=== PATIENT | female | born 1945 | race Caucasian/White ===

== ENCOUNTER 2018-12-24 11:04 | Inpatient (IN) ==
[2018-12-24] MEDS ORDERED: ALBUTEROL/IPRATROPIUM 3 ML NEB RESP TX STA (11:30)
[2018-12-24] MEDS ORDERED: ACETAMINOPHEN 325 MG TABLET PO ONE (11:30)
[2018-12-24] MEDS ORDERED: SODIUM CHLORIDE 0.9% 1,000 ML IV STA (11:30)
[2018-12-24] MEDS ORDERED: methylPREDNISolone SOD SUC 125 MG/2 ML VIAL IV STA (11:30)
[2018-12-24] MEDS ORDERED: SODIUM CHLORIDE 0.9% 500 ML IV STA (11:51)
[2018-12-24 11:56] LABS: Eosinophils % 0.4 % (0.00-10.9); Hematocrit 25.5 VOL% (35.7-47.0); Hemoglobin 8.3 GM/DL (12.0-16.0); Immature Granulocytes % 0.9 %; Immature Granulocytes Absolute 0.05 #; Lymphocytes # 0.3 10*3/uL (1.4-4.0); Lymphocytes % 5.7 % (21.3-54.2); Mean Corpuscular HGB Conc 32.5 GM/DL (32-36); Mean Corpuscular Volume 104.5 FL (87-102); Mean Platelet Volume 8.7 FL (9.6-12.0); Platelet Count 294 T/CUMM (130-400); Red Blood Count 2.44 MC/CUMM (3.8-5.5); Red Cell Distribution Width 14.8 % (9.3-17.3); White Blood Count 5.4 T/CUMM (4-12)
[2018-12-24] MEDS ORDERED: LEVOFLOXACIN INJ 750 MG in PREMIX 1 EACH IV STA (12:05)
[2018-12-24] MEDS ORDERED: VANCOMYCIN INJ 1,000 MG in SODIUM CHLORIDE 0.9% 250 ML IV STA (12:05)
[2018-12-24 12:13] LABS: INR 1.1; PT Patient Result 11.4 SECS
[2018-12-24 12:16] LABS: Alanine Aminotransferase 50 U/L (13-56); Albumin 2.1 G/DL (3.4-5.0); Alkaline Phosphatase 265 U/L (45-117); Aspartate Amino Transferase 65 U/L (0-37); Blood Urea Nitrogen 16 MG/DL (7-18); Calcium 9.1 MG/DL (8.5-10.1); Glucose 90 MG/DL (74-106); Osmolality,Calculated 277.5 MOS/KG (273-304); Total Protein 6.9 G/DL (6.4-8.3); Troponin I < 0.015 NG/ML (0.00-0.045)
[2018-12-24 12:38] LABS: Anisocytosis 1+; Platelet Estimate Normal; Poikilocytosis 1+
[2018-12-24 12:39] LABS: Ovalocytes Few
[2018-12-24] MEDS ORDERED: guaiFENesin 200 MG/10 ML UDCUP PO STA (13:47)
[2018-12-24] MEDS ORDERED: LACTULOSE 20 GM/30 ML UDCUP PO PRN (14:22)
[2018-12-24] MEDS ORDERED: SODIUM CHLORIDE 0.9% 1,000 ML IV SCH (14:30)
[2018-12-24] MEDS ORDERED: BENZONATATE 100 MG CAPSULE PO PRN (14:35)
[2018-12-24] MEDS: ACETYLCYSTEINE 20% 800 MG/4 ML VIAL RESP TX SCH (15:00)
[2018-12-24 15:12] LABS: Risk Ratio 1.93; Thyroid Stimulating Hormone 0.724 uIU/ml (0.358-3.74); VLDL CHOLESTEROL 24.8 MG/DL
[2018-12-24] MEDS: ENOXAPARIN 40 MG/0.4 ML SYRINGE SUBCUT SCH (15:50)
[2018-12-24] MEDS: PIPERACILLIN/TAZOBACTAM 3,375 MG in SODIUM CHLORIDE 0.9% 100 ML IV SCH ×2 (15:56→23:00)
[2018-12-24 16:25] LABS: Apearance,Urine CLEAR (Clear); Bilirubin,Urine Negative (Negative); Blood, Urine Small mg/dL (Negative); Glucose,Urine (UA) Negative (Negative); Ketones,Urine Negative (Negative); Mucus,Urine Occasional /LPF (Occasional); Nitrite,Urine Negative (Negative); Protein,Urine Negative; RBC,Urine <1 /HPF (0-4); Squamous Epithelial Cell,Urine Occasional /HPF (0-10); Urine Color Straw (Yellow); Urine Specific Gravity 1.008 (1.001-1.035); Urine Urobilinogen < 2.0 EU/DL (0.2-1.0); WBC,Urine 1 /HPF (0-6)
[2018-12-24] MEDS: ACETAMINOPHEN 325 MG TABLET PO PRN ×2 (18:05→22:58)
[2018-12-24] MEDS: METOCLOPRAMIDE 10 MG TABLET PO SCH (18:05)
[2018-12-24] MEDS: ALBUTEROL/IPRATROPIUM 3 ML NEB RESP TX SCH (20:00)
[2018-12-24] MEDS: FOLIC ACID 1 MG TABLET PO SCH (21:40)
[2018-12-24] MEDS: MULTIVITAMIN (CENTRUM) TABLET PO SCH (21:40)
[2018-12-24] MEDS: ALPRAZolam 0.5 MG TABLET PO SCH (21:40)
[2018-12-24] MEDS: SERTRALINE 25 MG TABLET PO SCH (21:41)
[2018-12-24] MEDS: rOPINIRole 1 MG TABLET PO SCH (21:41)
[2018-12-25] MEDS: ACETYLCYSTEINE 20% 800 MG/4 ML VIAL RESP TX SCH ×3 (00:10→15:44)
[2018-12-25] MEDS: ALBUTEROL/IPRATROPIUM 3 ML NEB RESP TX SCH ×3 (00:10→14:07)
[2018-12-25 06:01] LABS: Basophils % 0.2 % (0.0-0.8); Immature Granulocytes % 0.9 %; Immature Granulocytes Absolute 0.05 #; Lymphocytes # 0.3 10*3/uL (1.4-4.0); Lymphocytes % 5.1 % (21.3-54.2); Mean Corpuscular HGB Conc 33.3 GM/DL (32-36); Mean Platelet Volume 8.8 FL (9.6-12.0); Monocytes % 3.8 % (1.7-12.7); Platelet Count 250 T/CUMM (130-400); Red Blood Count 2.33 MC/CUMM (3.8-5.5); Red Cell Distribution Width 14.7 % (9.3-17.3); White Blood Count 5.7 T/CUMM (4-12)
[2018-12-25 06:15] LABS: Calcium 9.1 MG/DL (8.5-10.1); Osmolality,Calculated 281.3 MOS/KG (273-304)
[2018-12-25] MEDS: METOCLOPRAMIDE 10 MG TABLET PO SCH ×3 (08:49→16:35)
[2018-12-25] MEDS: MAGNESIUM OXIDE 400 MG TABLET PO SCH (08:49)
[2018-12-25] MEDS: MULTIVITAMIN (CENTRUM) TABLET PO SCH ×2 (08:49→22:45)
[2018-12-25] MEDS: PANTOPRAZOLE 40 MG TABLET PO SCH (08:49)
[2018-12-25] MEDS: ACEBUTOLOL 200 MG CAPSULE PO SCH (08:50)
[2018-12-25] MEDS: PIPERACILLIN/TAZOBACTAM 3,375 MG in SODIUM CHLORIDE 0.9% 100 ML IV SCH ×2 (08:51→19:20)
[2018-12-25] MEDS: ACETAMINOPHEN 325 MG TABLET PO PRN ×2 (08:56→13:36)
[2018-12-25] MEDS: FOLIC ACID 1 MG TABLET PO SCH ×2 (11:54→22:45)
[2018-12-25] MEDS: VANCOMYCIN INJ 750 MG in SODIUM CHLORIDE 0.9% 250 ML IV SCH (13:33)
[2018-12-25] MEDS: LEVOFLOXACIN INJ 750 MG in PREMIX 1 EACH IV SCH (16:35)
[2018-12-25] MEDS: ENOXAPARIN 40 MG/0.4 ML SYRINGE SUBCUT SCH (16:35)
[2018-12-25] MEDS ORDERED: PROPOFOL 1,000 MG/100 ML BOTTLE IV ONE (17:34)
[2018-12-25] MEDS ORDERED: VECURONIUM 10 MG VIAL IV ONE ×2 (17:34→17:47)
[2018-12-25] MEDS ORDERED: PROPOFOL 200 MG/20 ML VIAL IV ONE (17:48)
[2018-12-25] MEDS: SODIUM CHLORIDE 0.9% 1,000 ML IV SCH (18:00)
[2018-12-25] MEDS: PROPOFOL 1,000 MG/100 ML BOTTLE IV SCH ×2 (18:00→22:50)
[2018-12-25 18:18] LABS: Apearance,Urine CLEAR (Clear); Bacteria,Urine Occasional /HPF (Few); Bilirubin,Urine Negative (Negative); Blood, Urine Small mg/dL (Negative); Glucose,Urine (UA) Negative (Negative); Hyaline Casts,Urine 1 /LPF (0-3); Ketones,Urine Negative (Negative); Mucus,Urine Occasional /LPF (Occasional); Nitrite,Urine Negative (Negative); Protein,Urine 30 MG/DL; RBC,Urine <1 /HPF (0-4); Urine Color Yellow (Yellow); Urine Specific Gravity 1.017 (1.001-1.035); Urine Urobilinogen < 2.0 EU/DL (0.2-1.0); WBC,Urine 1 /HPF (0-6)
[2018-12-25 18:33] LABS: ABG Base Excess -3.1 MMOL/L (-2.5-2.5); ABG HCO3 21.7 MMOL/L (20-26); ABG Oxygen Saturation 93.5 % (95-100); ABG PCO2 65.2 MM HG (35-48); ABG PO2 95.7 MM HG (80-95); ABG TCO2 24.3 MMOL/L (23-27); Allen Test Positive; Pt O2 Delivery Device Ventilator
[2018-12-25 18:35] LABS: ABG PH 7.206 (7.35-7.45)
[2018-12-25 19:53] LABS: ABG Base Excess -1.6 MMOL/L (-2.5-2.5); ABG HCO3 22.9 MMOL/L (20-26); ABG Oxygen Saturation 88.1 % (95-100); ABG PCO2 49.6 MM HG (35-48); ABG PH 7.309 (7.35-7.45); ABG TCO2 23.2 MMOL/L (23-27); Allen Test Positive; Pt O2 Delivery Device Ventilator
[2018-12-25] MEDS: IPRATROPIUM 500 MCG/2.5 ML NEB RESP TX SCH (20:02)
[2018-12-25] MEDS: LEVALBUTEROL 0.31 MG/3 ML NEB RESP TX SCH (20:02)
[2018-12-25] MEDS: SERTRALINE 25 MG TABLET PO SCH (22:45)
[2018-12-25] MEDS: ALPRAZolam 0.5 MG TABLET PO SCH (22:45)
[2018-12-25] MEDS: rOPINIRole 1 MG TABLET PO SCH (22:45)
[2018-12-26] MEDS: IPRATROPIUM 500 MCG/2.5 ML NEB RESP TX SCH ×4 (00:42→19:03)
[2018-12-26] MEDS: LEVALBUTEROL 0.31 MG/3 ML NEB RESP TX SCH ×4 (00:42→19:03)
[2018-12-26] MEDS: ACETYLCYSTEINE 20% 800 MG/4 ML VIAL RESP TX SCH ×2 (00:42→07:22)
[2018-12-26] MEDS: PIPERACILLIN/TAZOBACTAM 3,375 MG in SODIUM CHLORIDE 0.9% 100 ML IV SCH ×3 (00:45→17:58)
[2018-12-26 04:33] LABS: ABG Base Excess 1.5 MMOL/L (-2.5-2.5); ABG HCO3 25.7 MMOL/L (20-26); ABG Oxygen Saturation 92.9 % (95-100); ABG PCO2 35.9 MM HG (35-48); ABG PH 7.456 (7.35-7.45); ABG PO2 68.9 MM HG (80-95); ABG TCO2 23.5 MMOL/L (23-27); Allen Test Positive; Pt O2 Delivery Device Ventilator
[2018-12-26] MEDS: PROPOFOL 1,000 MG/100 ML BOTTLE IV SCH ×4 (04:40→18:59)
[2018-12-26 05:01] LABS: Basophils % 0.2 % (0.0-0.8); Eosinophils % 0.2 % (0.00-10.9); Hematocrit 23.4 VOL% (35.7-47.0); Hemoglobin 7.5 GM/DL (12.0-16.0); Immature Granulocytes % 1.1 %; Immature Granulocytes Absolute 0.06 #; Lymphocytes # 0.4 10*3/uL (1.4-4.0); Lymphocytes % 8.1 % (21.3-54.2); Mean Corpuscular HGB Conc 32.1 GM/DL (32-36); Mean Corpuscular Volume 104.5 FL (87-102); Mean Platelet Volume 8.5 FL (9.6-12.0); Monocytes % 6.9 % (1.7-12.7); Neutrophils % 83.5 % (38.7-73.9); Platelet Count 249 T/CUMM (130-400); Red Blood Count 2.24 MC/CUMM (3.8-5.5); Red Cell Distribution Width 14.9 % (9.3-17.3); White Blood Count 5.4 T/CUMM (4-12)
[2018-12-26 06:37] LABS: Calcium 8.6 MG/DL (8.5-10.1); Osmolality,Calculated 280.3 MOS/KG (273-304)
[2018-12-26] MEDS ORDERED: DEXTROSE 50% 25 GM/50 ML VIAL IV PRN (09:13)
[2018-12-26] MEDS ORDERED: GLUCAGON 1 MG VIAL IM PRN (09:13)
[2018-12-26] MEDS: FOLIC ACID 1 MG TABLET PO SCH ×2 (09:33→21:45)
[2018-12-26] MEDS: ASPIRIN CHEW 81 MG TABLET PO SCH (09:33)
[2018-12-26] MEDS: METOCLOPRAMIDE 10 MG TABLET PO SCH ×3 (09:33→17:00)
[2018-12-26] MEDS: PANTOPRAZOLE 40 MG TABLET PO SCH (09:33)
[2018-12-26] MEDS: MAGNESIUM OXIDE 400 MG TABLET PO SCH (09:33)
[2018-12-26] MEDS: MULTIVITAMIN (CENTRUM) TABLET PO SCH ×2 (09:33→21:45)
[2018-12-26] MEDS: ACEBUTOLOL 200 MG CAPSULE PO SCH (10:00)
[2018-12-26] MEDS ORDERED: SODIUM CHLORIDE 0.9% 1,000 ML IV PRN (10:26)
[2018-12-26] MEDS ORDERED: MAGNESIUM SULF RIDER 4 GM in PREMIX 1 EACH IV PRN (10:45)
[2018-12-26] MEDS: FLUCONAZOLE INJ 100 MG in IV BAG 1 EACH IV SCH (11:30)
[2018-12-26] MEDS: VANCOMYCIN INJ 750 MG in SODIUM CHLORIDE 0.9% 250 ML IV SCH (12:25)
[2018-12-26] MEDS: methylPREDNISolone SOD SUC 40 MG/1 ML VIAL IV SCH (12:25)
[2018-12-26] MEDS: INSULIN REGULAR 100 UNIT/ML SUBCUT SCH ×2 (14:40→19:43)
[2018-12-26] MEDS: LEVOFLOXACIN INJ 750 MG in PREMIX 1 EACH IV SCH (16:20)
[2018-12-26 18:56] LABS: Folate > 24.0 NG/ML (5.4-24.0); Vitamin B12 701 PG/ML (211-911)
[2018-12-26] MEDS: SODIUM CHLORIDE 0.9% 1,000 ML IV SCH (20:53)
[2018-12-26] MEDS ORDERED: PANTOPRAZOLE 40 MG TABLET PO SCH (21:00)
[2018-12-26] MEDS: rOPINIRole 1 MG TABLET PO SCH (21:45)
[2018-12-26] MEDS: ALPRAZolam 0.5 MG TABLET PO SCH (21:46)
[2018-12-26] MEDS: SERTRALINE 25 MG TABLET PO SCH (21:46)
[2018-12-27] MEDS: PIPERACILLIN/TAZOBACTAM 3,375 MG in SODIUM CHLORIDE 0.9% 100 ML IV SCH ×3 (00:45→16:34)
[2018-12-27] MEDS: PROPOFOL 1,000 MG/100 ML BOTTLE IV SCH ×3 (00:45→19:20)
[2018-12-27] MEDS: INSULIN REGULAR 100 UNIT/ML SUBCUT SCH ×4 (00:50→18:57)
[2018-12-27] MEDS: LEVALBUTEROL 0.31 MG/3 ML NEB RESP TX SCH ×4 (01:15→19:45)
[2018-12-27] MEDS: IPRATROPIUM 500 MCG/2.5 ML NEB RESP TX SCH ×4 (01:15→19:45)
[2018-12-27 03:40] LABS: ABG HCO3 27.1 MMOL/L (20-26); ABG Oxygen Saturation 98.9 % (95-100); ABG PCO2 49.7 MM HG (35-48); ABG PH 7.373 (7.35-7.45); ABG TCO2 26.2 MMOL/L (23-27); Allen Test Positive; Pt O2 Delivery Device Ventilator
[2018-12-27 04:51] LABS: Basophils % 0.2 % (0.0-0.8); Hematocrit 30.9 VOL% (35.7-47.0); Hemoglobin 10.4 GM/DL (12.0-16.0); Immature Granulocytes % 1.6 %; Immature Granulocytes Absolute 0.07 #; Lymphocytes # 0.2 10*3/uL (1.4-4.0); Lymphocytes % 5.2 % (21.3-54.2); Mean Corpuscular HGB Conc 33.7 GM/DL (32-36); Mean Platelet Volume 8.9 FL (9.6-12.0); Monocytes % 3.2 % (1.7-12.7); Neutrophils % 89.8 % (38.7-73.9); Platelet Count 213 T/CUMM (130-400); Red Blood Count 3.12 MC/CUMM (3.8-5.5); Red Cell Distribution Width 16.4 % (9.3-17.3); White Blood Count 4.4 T/CUMM (4-12)
[2018-12-27 05:15] LABS: Osmolality,Calculated 284.3 MOS/KG (273-304)
[2018-12-27 05:22] LABS: Prealbumin 13.8 MG/DL (20-40)
[2018-12-27] MEDS: MULTIVITAMIN (CENTRUM) TABLET PO SCH ×2 (11:07→21:55)
[2018-12-27] MEDS: FOLIC ACID 1 MG TABLET PO SCH ×2 (11:07→21:55)
[2018-12-27] MEDS: METOCLOPRAMIDE 10 MG TABLET PO SCH ×3 (11:07→16:35)
[2018-12-27] MEDS: methylPREDNISolone SOD SUC 40 MG/1 ML VIAL IV SCH ×3 (11:08→23:25)
[2018-12-27] MEDS: ACEBUTOLOL 200 MG CAPSULE PO SCH (11:08)
[2018-12-27] MEDS: FLUCONAZOLE INJ 100 MG in IV BAG 1 EACH IV SCH (11:08)
[2018-12-27] MEDS: MAGNESIUM OXIDE 400 MG TABLET PO SCH (11:08)
[2018-12-27] MEDS: VANCOMYCIN INJ 750 MG in SODIUM CHLORIDE 0.9% 250 ML IV SCH (12:50)
[2018-12-27] MEDS: LEVOFLOXACIN INJ 750 MG in PREMIX 1 EACH IV SCH (15:00)
[2018-12-27] MEDS ORDERED: METOPROLOL TARTRATE 50 MG TABLET PO PRN (15:07)
[2018-12-27] MEDS: ENALAPRIL 2.5 MG/2 ML VIAL IV PRN (18:52)
[2018-12-27] MEDS: SERTRALINE 25 MG TABLET PO SCH (21:55)
[2018-12-27] MEDS: rOPINIRole 1 MG TABLET PO SCH (21:55)
[2018-12-27] MEDS: ALPRAZolam 0.5 MG TABLET PO SCH (21:55)
[2018-12-27] MEDS: LANSOPRAZOLE ODT 30 MG TABLET PER TUBE SCH (21:55)
[2018-12-28] MEDS: INSULIN REGULAR 100 UNIT/ML SUBCUT SCH ×4 (00:36→18:01)
[2018-12-28] MEDS: PIPERACILLIN/TAZOBACTAM 3,375 MG in SODIUM CHLORIDE 0.9% 100 ML IV SCH ×3 (00:55→16:41)
[2018-12-28] MEDS: ENALAPRIL 2.5 MG/2 ML VIAL IV PRN (01:05)
[2018-12-28] MEDS: IPRATROPIUM 500 MCG/2.5 ML NEB RESP TX SCH ×4 (01:06→19:20)
[2018-12-28] MEDS: LEVALBUTEROL 0.31 MG/3 ML NEB RESP TX SCH ×4 (01:06→19:20)
[2018-12-28 04:04] LABS: ABG Base Excess 8.7 MMOL/L (-2.5-2.5); ABG HCO3 33.7 MMOL/L (20-26); ABG Oxygen Saturation 98.7 % (95-100); ABG PCO2 48.1 MM HG (35-48); ABG PH 7.463 (7.35-7.45); ABG PO2 113.9 MM HG (80-95); ABG TCO2 35.1 MMOL/L (23-27); Allen Test Positive; Pt O2 Delivery Device Ventilator
[2018-12-28] MEDS: PROPOFOL 1,000 MG/100 ML BOTTLE IV SCH ×3 (04:40→20:46)
[2018-12-28 04:58] LABS: Basophils % 0.3 % (0.0-0.8); Hematocrit 33.4 VOL% (35.7-47.0); Hemoglobin 11.2 GM/DL (12.0-16.0); Immature Granulocytes % 1.3 %; Immature Granulocytes Absolute 0.09 #; Lymphocytes # 0.2 10*3/uL (1.4-4.0); Lymphocytes % 3.4 % (21.3-54.2); Mean Corpuscular HGB Conc 33.5 GM/DL (32-36); Mean Corpuscular Volume 99.4 FL (87-102); Mean Platelet Volume 9.2 FL (9.6-12.0); Platelet Count 242 T/CUMM (130-400); Red Blood Count 3.36 MC/CUMM (3.8-5.5); Red Cell Distribution Width 15.9 % (9.3-17.3); White Blood Count 6.8 T/CUMM (4-12)
[2018-12-28 05:01] LABS: INR 1.1; PT Patient Result 11.6 SECS; Partial Thromboplastin Time 25.2 SECS (0-40)
[2018-12-28 05:29] LABS: Calcium 9.2 MG/DL (8.5-10.1); Osmolality,Calculated 280.5 MOS/KG (273-304)
[2018-12-28 05:46] LABS: Hypochromasia 1+; Lymphocytes 4 % (20-55); Ovalocytes Slight; Platelet Estimate Adequate; Segmented Neutrophils 93 % (50-85); Total Cells Counted 100
[2018-12-28] MEDS: ACEBUTOLOL 200 MG CAPSULE PO SCH (09:53)
[2018-12-28] MEDS: LANSOPRAZOLE ODT 30 MG TABLET PER TUBE SCH ×2 (09:54→22:12)
[2018-12-28] MEDS: MAGNESIUM OXIDE 400 MG TABLET PO SCH (09:54)
[2018-12-28] MEDS: MULTIVITAMIN (CENTRUM) TABLET PO SCH ×2 (09:55→22:12)
[2018-12-28] MEDS: FOLIC ACID 1 MG TABLET PO SCH ×2 (09:55→22:12)
[2018-12-28] MEDS: ASPIRIN CHEW 81 MG TABLET PO SCH (09:55)
[2018-12-28] MEDS: METOCLOPRAMIDE 10 MG TABLET PO SCH ×3 (09:56→16:41)
[2018-12-28] MEDS: methylPREDNISolone SOD SUC 40 MG/1 ML VIAL IV SCH ×2 (09:59→22:12)
[2018-12-28] MEDS: FLUCONAZOLE INJ 100 MG in IV BAG 1 EACH IV SCH (10:01)
[2018-12-28] MEDS: DORNASE ALFA 2.5 MG/2.5 ML VIAL RESP TX SCH ×2 (10:50→19:20)
[2018-12-28] MEDS: LEVOFLOXACIN INJ 750 MG in PREMIX 1 EACH IV SCH (14:27)
[2018-12-28] MEDS: SERTRALINE 25 MG TABLET PO SCH (22:12)
[2018-12-28] MEDS: ALPRAZolam 0.5 MG TABLET PO SCH (22:12)
[2018-12-28] MEDS: rOPINIRole 1 MG TABLET PO SCH (22:13)
[2018-12-29] MEDS: INSULIN REGULAR 100 UNIT/ML SUBCUT SCH ×4 (00:39→20:37)
[2018-12-29] MEDS: VANCOMYCIN INJ 750 MG in SODIUM CHLORIDE 0.9% 250 ML IV SCH ×2 (00:42→13:10)
[2018-12-29] MEDS: IPRATROPIUM 500 MCG/2.5 ML NEB RESP TX SCH ×4 (01:25→19:50)
[2018-12-29] MEDS: LEVALBUTEROL 0.31 MG/3 ML NEB RESP TX SCH ×4 (01:25→19:50)
[2018-12-29] MEDS: PIPERACILLIN/TAZOBACTAM 3,375 MG in SODIUM CHLORIDE 0.9% 100 ML IV SCH ×3 (03:15→18:00)
[2018-12-29] MEDS: PROPOFOL 1,000 MG/100 ML BOTTLE IV SCH ×2 (03:21→20:38)
[2018-12-29 04:40] LABS: Basophils % 0.3 % (0.0-0.8); Hematocrit 35.9 VOL% (35.7-47.0); Hemoglobin 11.9 GM/DL (12.0-16.0); Immature Granulocytes % 1.7 %; Immature Granulocytes Absolute 0.15 #; Lymphocytes # 0.2 10*3/uL (1.4-4.0); Lymphocytes % 2.4 % (21.3-54.2); Mean Corpuscular HGB Conc 33.1 GM/DL (32-36); Mean Corpuscular Volume 99.2 FL (87-102); Mean Platelet Volume 9.1 FL (9.6-12.0); Monocytes % 6.3 % (1.7-12.7); Neutrophils % 89.3 % (38.7-73.9); Platelet Count 274 T/CUMM (130-400); Red Blood Count 3.62 MC/CUMM (3.8-5.5); Red Cell Distribution Width 15.3 % (9.3-17.3)
[2018-12-29 04:43] LABS: ABG Base Excess 10.9 MMOL/L (-2.5-2.5); ABG HCO3 34.6 MMOL/L (20-26); ABG Oxygen Saturation 98.2 % (95-100); ABG PCO2 55.3 MM HG (35-48); ABG PH 7.436 (7.35-7.45); ABG TCO2 33.2 MMOL/L (23-27); Allen Test Positive; Pt O2 Delivery Device Ventilator
[2018-12-29 05:12] LABS: Calcium 9.7 MG/DL (8.5-10.1); Osmolality,Calculated 283.4 MOS/KG (273-304)
[2018-12-29 05:33] LABS: Band Neutrophils 1 % (0-10); Lymphocytes 3 % (20-55); Myelocytes 1 %; Segmented Neutrophils 93 % (50-85); Total Cells Counted 100
[2018-12-29 05:34] LABS: Anisocytosis 1+; Ovalocytes 2+; Platelet Estimate Adequate
[2018-12-29] MEDS: DORNASE ALFA 2.5 MG/2.5 ML VIAL RESP TX SCH ×2 (07:44→20:00)
[2018-12-29] MEDS: methylPREDNISolone SOD SUC 40 MG/1 ML VIAL IV SCH ×2 (10:26→22:29)
[2018-12-29] MEDS: ACEBUTOLOL 200 MG CAPSULE PO SCH (10:48)
[2018-12-29] MEDS: METOCLOPRAMIDE 10 MG TABLET PO SCH ×3 (10:48→18:00)
[2018-12-29] MEDS: MULTIVITAMIN (CENTRUM) TABLET PO SCH ×2 (10:48→20:57)
[2018-12-29] MEDS: MAGNESIUM OXIDE 400 MG TABLET PO SCH (10:48)
[2018-12-29] MEDS: FOLIC ACID 1 MG TABLET PO SCH ×2 (10:48→20:57)
[2018-12-29] MEDS: LANSOPRAZOLE ODT 30 MG TABLET PER TUBE SCH ×2 (10:48→20:57)
[2018-12-29] MEDS: FLUCONAZOLE INJ 100 MG in IV BAG 1 EACH IV SCH (11:10)
[2018-12-29] MEDS: LEVOFLOXACIN INJ 750 MG in PREMIX 1 EACH IV SCH (14:49)
[2018-12-29] MEDS: ALPRAZolam 0.5 MG TABLET PO SCH (20:58)
[2018-12-29] MEDS: SERTRALINE 25 MG TABLET PO SCH (20:58)
[2018-12-29] MEDS: rOPINIRole 1 MG TABLET PO SCH (21:00)
[2018-12-30] MEDS: INSULIN REGULAR 100 UNIT/ML SUBCUT SCH ×4 (00:41→18:37)
[2018-12-30] MEDS: VANCOMYCIN INJ 750 MG in SODIUM CHLORIDE 0.9% 250 ML IV SCH ×4 (01:00→23:32)
[2018-12-30] MEDS: IPRATROPIUM 500 MCG/2.5 ML NEB RESP TX SCH ×4 (01:10→19:04)
[2018-12-30] MEDS: LEVALBUTEROL 0.31 MG/3 ML NEB RESP TX SCH ×4 (01:10→19:04)
[2018-12-30] MEDS: PIPERACILLIN/TAZOBACTAM 3,375 MG in SODIUM CHLORIDE 0.9% 100 ML IV SCH ×3 (03:23→18:37)
[2018-12-30] MEDS: PROPOFOL 1,000 MG/100 ML BOTTLE IV SCH ×3 (03:24→23:31)
[2018-12-30 04:16] LABS: ABG Base Excess 11.7 MMOL/L (-2.5-2.5); ABG HCO3 37.2 MMOL/L (20-26); ABG Oxygen Saturation 99.2 % (95-100); ABG PH 7.464 (7.35-7.45); ABG PO2 151.4 MM HG (80-95); ABG TCO2 38.8 MMOL/L (23-27); Pt O2 Delivery Device Ventilator
[2018-12-30 05:02] LABS: Basophils % 0.4 % (0.0-0.8); Hematocrit 35.2 VOL% (35.7-47.0); Hemoglobin 11.7 GM/DL (12.0-16.0); Immature Granulocytes % 3.1 %; Immature Granulocytes Absolute 0.23 #; Lymphocytes # 0.3 10*3/uL (1.4-4.0); Lymphocytes % 3.6 % (21.3-54.2); Mean Corpuscular HGB Conc 33.2 GM/DL (32-36); Mean Corpuscular Volume 100.3 FL (87-102); Mean Platelet Volume 8.9 FL (9.6-12.0); Monocytes % 4.3 % (1.7-12.7); Neutrophils % 88.6 % (38.7-73.9); Platelet Count 302 T/CUMM (130-400); Red Blood Count 3.51 MC/CUMM (3.8-5.5); Red Cell Distribution Width 14.6 % (9.3-17.3); White Blood Count 7.5 T/CUMM (4-12)
[2018-12-30 05:30] LABS: Hypochromasia Slight; Lymphocytes 5 % (20-55); Platelet Estimate Normal; Segmented Neutrophils 94 % (50-85); Total Cells Counted 100
[2018-12-30 05:37] LABS: Calcium 9.4 MG/DL (8.5-10.1); Osmolality,Calculated 277.8 MOS/KG (273-304)
[2018-12-30] MEDS: DORNASE ALFA 2.5 MG/2.5 ML VIAL RESP TX SCH ×2 (07:36→19:14)
[2018-12-30] MEDS: LANSOPRAZOLE ODT 30 MG TABLET PER TUBE SCH ×2 (09:44→21:40)
[2018-12-30] MEDS: ASPIRIN CHEW 81 MG TABLET PO SCH (09:44)
[2018-12-30] MEDS: FOLIC ACID 1 MG TABLET PO SCH ×2 (09:44→21:40)
[2018-12-30] MEDS: methylPREDNISolone SOD SUC 40 MG/1 ML VIAL IV SCH ×2 (09:44→21:41)
[2018-12-30] MEDS: METOCLOPRAMIDE 10 MG TABLET PO SCH ×3 (09:44→15:32)
[2018-12-30] MEDS: MULTIVITAMIN (CENTRUM) TABLET PO SCH ×2 (09:44→21:40)
[2018-12-30] MEDS: MAGNESIUM OXIDE 400 MG TABLET PO SCH (09:44)
[2018-12-30] MEDS: ACEBUTOLOL 200 MG CAPSULE PO SCH (09:48)
[2018-12-30] MEDS: FLUCONAZOLE INJ 100 MG in IV BAG 1 EACH IV SCH (09:59)
[2018-12-30] MEDS: LEVOFLOXACIN INJ 750 MG in PREMIX 1 EACH IV SCH (14:45)
[2018-12-30] MEDS: ALPRAZolam 0.5 MG TABLET PO SCH (21:40)
[2018-12-30] MEDS: rOPINIRole 1 MG TABLET PO SCH (21:40)
[2018-12-30] MEDS: SERTRALINE 25 MG TABLET PO SCH (21:41)
[2018-12-31] MEDS: INSULIN REGULAR 100 UNIT/ML SUBCUT SCH ×4 (00:19→17:17)
[2018-12-31] MEDS: IPRATROPIUM 500 MCG/2.5 ML NEB RESP TX SCH ×4 (00:30→20:02)
[2018-12-31] MEDS: LEVALBUTEROL 0.31 MG/3 ML NEB RESP TX SCH ×4 (00:30→20:02)
[2018-12-31] MEDS: PROPOFOL 1,000 MG/100 ML BOTTLE IV SCH ×4 (02:54→21:02)
[2018-12-31] MEDS: PIPERACILLIN/TAZOBACTAM 3,375 MG in SODIUM CHLORIDE 0.9% 100 ML IV SCH ×3 (03:30→17:17)
[2018-12-31 03:45] LABS: ABG Base Excess 8.5 MMOL/L (-2.5-2.5); ABG HCO3 32.3 MMOL/L (20-26); ABG Oxygen Saturation 98.3 % (95-100); ABG PCO2 52.2 MM HG (35-48); ABG PH 7.428 (7.35-7.45); ABG TCO2 30.7 MMOL/L (23-27); Allen Test Positive; Pt O2 Delivery Device Ventilator
[2018-12-31 03:51] LABS: Basophils % 0.3 % (0.0-0.8); Hematocrit 33.7 VOL% (35.7-47.0); Hemoglobin 11.2 GM/DL (12.0-16.0); Immature Granulocytes % 3.2 %; Immature Granulocytes Absolute 0.29 #; Lymphocytes # 0.3 10*3/uL (1.4-4.0); Lymphocytes % 2.9 % (21.3-54.2); Mean Corpuscular HGB Conc 33.2 GM/DL (32-36); Mean Corpuscular Volume 100.3 FL (87-102); Mean Platelet Volume 9.1 FL (9.6-12.0); Monocytes % 4.5 % (1.7-12.7); Neutrophils % 89.1 % (38.7-73.9); Platelet Count 321 T/CUMM (130-400); Red Blood Count 3.36 MC/CUMM (3.8-5.5); Red Cell Distribution Width 14.6 % (9.3-17.3); White Blood Count 9.2 T/CUMM (4-12)
[2018-12-31 04:11] LABS: Calcium 9.1 MG/DL (8.5-10.1)
[2018-12-31 04:18] LABS: Platelet Estimate Normal; Polychromasia Few
[2018-12-31] MEDS: VANCOMYCIN INJ 750 MG in SODIUM CHLORIDE 0.9% 250 ML IV SCH ×3 (06:23→23:13)
[2018-12-31] MEDS: DORNASE ALFA 2.5 MG/2.5 ML VIAL RESP TX SCH ×2 (07:28→20:02)
[2018-12-31] MEDS: MAGNESIUM OXIDE 400 MG TABLET PO SCH (08:52)
[2018-12-31] MEDS: METOCLOPRAMIDE 10 MG TABLET PO SCH ×3 (08:52→15:50)
[2018-12-31] MEDS: FOLIC ACID 1 MG TABLET PO SCH ×2 (08:52→21:04)
[2018-12-31] MEDS: MULTIVITAMIN (CENTRUM) TABLET PO SCH ×2 (08:52→21:04)
[2018-12-31] MEDS: LANSOPRAZOLE ODT 30 MG TABLET PER TUBE SCH ×2 (08:53→21:03)
[2018-12-31] MEDS: ACEBUTOLOL 200 MG CAPSULE PO SCH (08:57)
[2018-12-31] MEDS: FLUCONAZOLE INJ 100 MG in IV BAG 1 EACH IV SCH (09:30)
[2018-12-31] MEDS: methylPREDNISolone SOD SUC 40 MG/1 ML VIAL IV SCH ×2 (09:30→23:12)
[2018-12-31] MEDS: LEVOFLOXACIN INJ 750 MG in PREMIX 1 EACH IV SCH (14:51)
[2018-12-31] MEDS: ALPRAZolam 0.5 MG TABLET PO SCH (21:03)
[2018-12-31] MEDS: rOPINIRole 1 MG TABLET PO SCH (21:03)
[2018-12-31] MEDS: SERTRALINE 25 MG TABLET PO SCH (21:04)
[2019-01-01] MEDS: LEVALBUTEROL 0.31 MG/3 ML NEB RESP TX SCH ×4 (00:44→19:23)
[2019-01-01] MEDS: IPRATROPIUM 500 MCG/2.5 ML NEB RESP TX SCH ×4 (00:44→19:23)
[2019-01-01] MEDS: INSULIN REGULAR 100 UNIT/ML SUBCUT SCH ×4 (01:14→18:13)
[2019-01-01] MEDS: PIPERACILLIN/TAZOBACTAM 3,375 MG in SODIUM CHLORIDE 0.9% 100 ML IV SCH ×3 (02:10→17:28)
[2019-01-01 03:08] LABS: ABG Base Excess 8.9 MMOL/L (-2.5-2.5); ABG HCO3 33.7 MMOL/L (20-26); ABG Oxygen Saturation 99.3 % (95-100); ABG PCO2 47.1 MM HG (35-48); ABG PH 7.472 (7.35-7.45); ABG PO2 145.7 MM HG (80-95); ABG TCO2 35.1 MMOL/L (23-27); Allen Test Positive; Pt O2 Delivery Device Ventilator
[2019-01-01 03:48] LABS: Basophils % 0.3 % (0.0-0.8); Eosinophils % 0.1 % (0.00-10.9); Hematocrit 34.5 VOL% (35.7-47.0); Hemoglobin 11.3 GM/DL (12.0-16.0); Immature Granulocytes % 3.6 %; Immature Granulocytes Absolute 0.36 #; Lymphocytes # 0.3 10*3/uL (1.4-4.0); Lymphocytes % 2.6 % (21.3-54.2); Mean Corpuscular HGB Conc 32.8 GM/DL (32-36); Mean Corpuscular Volume 100.3 FL (87-102); Mean Platelet Volume 9.1 FL (9.6-12.0); Monocytes % 4.1 % (1.7-12.7); Neutrophils % 89.3 % (38.7-73.9); Platelet Count 351 T/CUMM (130-400); Red Blood Count 3.44 MC/CUMM (3.8-5.5); Red Cell Distribution Width 14.5 % (9.3-17.3); White Blood Count 9.9 T/CUMM (4-12)
[2019-01-01 04:02] LABS: Calcium 9.2 MG/DL (8.5-10.1)
[2019-01-01 04:57] LABS: Band Neutrophils 3 % (0-10); Platelet Estimate Normal; Total Cells Counted 100
[2019-01-01] MEDS: PROPOFOL 1,000 MG/100 ML BOTTLE IV SCH ×4 (05:44→20:38)
[2019-01-01] MEDS: VANCOMYCIN INJ 750 MG in SODIUM CHLORIDE 0.9% 250 ML IV SCH ×3 (06:00→23:09)
[2019-01-01 06:52] LABS: Eosinophils 2 % (0-10); Lymphocytes 4 % (20-55); Nucleated Red Blood Cells 0 (0-5); Segmented Neutrophils 88 % (50-85)
[2019-01-01] MEDS: DORNASE ALFA 2.5 MG/2.5 ML VIAL RESP TX SCH ×2 (08:01→19:23)
[2019-01-01] MEDS: ACEBUTOLOL 200 MG CAPSULE PO SCH (08:38)
[2019-01-01] MEDS: MULTIVITAMIN (CENTRUM) TABLET PO SCH ×2 (08:39→21:07)
[2019-01-01] MEDS: METOCLOPRAMIDE 10 MG TABLET PO SCH ×3 (08:39→17:28)
[2019-01-01] MEDS: LANSOPRAZOLE ODT 30 MG TABLET PER TUBE SCH ×2 (08:39→21:07)
[2019-01-01] MEDS: FOLIC ACID 1 MG TABLET PO SCH ×2 (08:39→21:07)
[2019-01-01] MEDS: MAGNESIUM OXIDE 400 MG TABLET PO SCH (08:41)
[2019-01-01] MEDS: FLUCONAZOLE INJ 100 MG in IV BAG 1 EACH IV SCH (09:30)
[2019-01-01] MEDS: methylPREDNISolone SOD SUC 40 MG/1 ML VIAL IV SCH (09:30)
[2019-01-01] MEDS: LEVOFLOXACIN INJ 750 MG in PREMIX 1 EACH IV SCH (13:40)
[2019-01-01] MEDS: rOPINIRole 1 MG TABLET PO SCH (21:07)
[2019-01-01] MEDS: ALPRAZolam 0.5 MG TABLET PO SCH (21:08)
[2019-01-01] MEDS: SERTRALINE 25 MG TABLET PO SCH (21:09)
[2019-01-02] MEDS: LEVALBUTEROL 0.31 MG/3 ML NEB RESP TX SCH ×4 (00:45→19:08)
[2019-01-02] MEDS: IPRATROPIUM 500 MCG/2.5 ML NEB RESP TX SCH ×4 (00:45→19:08)
[2019-01-02] MEDS: methylPREDNISolone SOD SUC 40 MG/1 ML VIAL IV SCH ×3 (00:54→21:33)
[2019-01-02] MEDS: INSULIN REGULAR 100 UNIT/ML SUBCUT SCH ×4 (00:55→18:12)
[2019-01-02] MEDS: PIPERACILLIN/TAZOBACTAM 3,375 MG in SODIUM CHLORIDE 0.9% 100 ML IV SCH ×3 (02:50→18:02)
[2019-01-02] MEDS: PROPOFOL 1,000 MG/100 ML BOTTLE IV SCH ×5 (02:50→20:41)
[2019-01-02 03:35] LABS: ABG Base Excess 8.3 MMOL/L (-2.5-2.5); ABG HCO3 33.7 MMOL/L (20-26); ABG Oxygen Saturation 99.1 % (95-100); ABG PCO2 50.2 MM HG (35-48); ABG PH 7.445 (7.35-7.45); ABG PO2 132.8 MM HG (80-95); ABG TCO2 35.3 MMOL/L (23-27); Allen Test Positive; Pt O2 Delivery Device Ventilator
[2019-01-02 05:13] LABS: Basophils % 0.3 % (0.0-0.8); Eosinophils # 0.1 10*3/uL (0.0-0.87); Eosinophils % 0.5 % (0.00-10.9); Hematocrit 36.9 VOL% (35.7-47.0); Hemoglobin 12.1 GM/DL (12.0-16.0); Immature Granulocytes % 5.1 %; Immature Granulocytes Absolute 0.67 #; Lymphocytes # 0.3 10*3/uL (1.4-4.0); Lymphocytes % 2.5 % (21.3-54.2); Mean Corpuscular HGB Conc 32.8 GM/DL (32-36); Mean Corpuscular Volume 100.5 FL (87-102); Mean Platelet Volume 9.2 FL (9.6-12.0); Monocytes % 6.4 % (1.7-12.7); Neutrophils % 85.2 % (38.7-73.9); Platelet Count 408 T/CUMM (130-400); Red Blood Count 3.67 MC/CUMM (3.8-5.5); Red Cell Distribution Width 14.5 % (9.3-17.3)
[2019-01-02 05:19] LABS: INR 0.9; PT Patient Result 10.2 SECS; Partial Thromboplastin Time < 21.0 SECS (0-40)
[2019-01-02 05:50] LABS: Calcium 9.7 MG/DL (8.5-10.1); Osmolality,Calculated 278.1 MOS/KG (273-304)
[2019-01-02 05:57] LABS: Platelet Estimate Normal; Polychromasia Few; Segmented Neutrophils 94 % (50-85); Total Cells Counted 100
[2019-01-02] MEDS: DORNASE ALFA 2.5 MG/2.5 ML VIAL RESP TX SCH ×2 (07:20→19:24)
[2019-01-02] MEDS: VANCOMYCIN INJ 750 MG in SODIUM CHLORIDE 0.9% 250 ML IV SCH ×2 (09:13→16:20)
[2019-01-02] MEDS: ASPIRIN CHEW 81 MG TABLET PO SCH (09:14)
[2019-01-02] MEDS: LANSOPRAZOLE ODT 30 MG TABLET PER TUBE SCH ×2 (09:14→21:32)
[2019-01-02] MEDS: MULTIVITAMIN (CENTRUM) TABLET PO SCH ×2 (09:14→21:32)
[2019-01-02] MEDS: FOLIC ACID 1 MG TABLET PO SCH ×2 (09:14→21:32)
[2019-01-02] MEDS: METOCLOPRAMIDE 10 MG TABLET PO SCH ×3 (09:14→18:02)
[2019-01-02] MEDS: MAGNESIUM OXIDE 400 MG TABLET PO SCH (09:14)
[2019-01-02] MEDS: ACEBUTOLOL 200 MG CAPSULE PO SCH (09:15)
[2019-01-02] MEDS: FLUCONAZOLE INJ 100 MG in IV BAG 1 EACH IV SCH (10:15)
[2019-01-02] MEDS: LEVOFLOXACIN INJ 750 MG in PREMIX 1 EACH IV SCH (14:38)
[2019-01-02] MEDS: rOPINIRole 1 MG TABLET PO SCH (21:32)
[2019-01-02] MEDS: ALPRAZolam 0.5 MG TABLET PO SCH (21:32)
[2019-01-02] MEDS: SERTRALINE 25 MG TABLET PO SCH (21:34)
[2019-01-03] MEDS: LEVALBUTEROL 0.31 MG/3 ML NEB RESP TX SCH ×4 (00:25→19:05)
[2019-01-03] MEDS: IPRATROPIUM 500 MCG/2.5 ML NEB RESP TX SCH ×4 (00:25→19:05)
[2019-01-03] MEDS: INSULIN REGULAR 100 UNIT/ML SUBCUT SCH ×4 (00:37→18:29)
[2019-01-03] MEDS: VANCOMYCIN INJ 750 MG in SODIUM CHLORIDE 0.9% 250 ML IV SCH ×4 (00:40→23:18)
[2019-01-03] MEDS: PROPOFOL 1,000 MG/100 ML BOTTLE IV SCH ×4 (01:44→21:42)
[2019-01-03] MEDS: PIPERACILLIN/TAZOBACTAM 3,375 MG in SODIUM CHLORIDE 0.9% 100 ML IV SCH ×3 (02:18→18:30)
[2019-01-03 04:25] LABS: ABG HCO3 28.9 MMOL/L (20-26); ABG Oxygen Saturation 98.5 % (95-100); ABG PH 7.406 (7.35-7.45); ABG TCO2 26.9 MMOL/L (23-27); Allen Test Positive; Pt O2 Delivery Device Ventilator
[2019-01-03] MEDS: METOCLOPRAMIDE 10 MG TABLET PO SCH ×3 (06:30→17:12)
[2019-01-03] MEDS: DORNASE ALFA 2.5 MG/2.5 ML VIAL RESP TX SCH ×2 (06:57→19:05)
[2019-01-03] MEDS: ACEBUTOLOL 200 MG CAPSULE PO SCH (09:30)
[2019-01-03] MEDS: MAGNESIUM OXIDE 400 MG TABLET PO SCH (09:31)
[2019-01-03] MEDS: MULTIVITAMIN (CENTRUM) TABLET PO SCH ×2 (09:31→21:55)
[2019-01-03] MEDS: FOLIC ACID 1 MG TABLET PO SCH ×2 (09:31→21:55)
[2019-01-03] MEDS: LANSOPRAZOLE ODT 30 MG TABLET PER TUBE SCH ×2 (09:31→21:55)
[2019-01-03] MEDS: methylPREDNISolone SOD SUC 40 MG/1 ML VIAL IV SCH ×2 (11:03→21:55)
[2019-01-03] MEDS: FLUCONAZOLE INJ 100 MG in IV BAG 1 EACH IV SCH (11:03)
[2019-01-03] MEDS: LEVOFLOXACIN INJ 750 MG in PREMIX 1 EACH IV SCH (14:30)
[2019-01-03] MEDS: ALPRAZolam 0.5 MG TABLET PO SCH (21:54)
[2019-01-03] MEDS: rOPINIRole 1 MG TABLET PO SCH (21:54)
[2019-01-03] MEDS: SERTRALINE 25 MG TABLET PO SCH (21:55)
[2019-01-04] MEDS: INSULIN REGULAR 100 UNIT/ML SUBCUT SCH ×4 (00:24→18:21)
[2019-01-04] MEDS: LEVALBUTEROL 0.31 MG/3 ML NEB RESP TX SCH ×4 (00:30→19:55)
[2019-01-04] MEDS: IPRATROPIUM 500 MCG/2.5 ML NEB RESP TX SCH ×4 (00:30→19:55)
[2019-01-04] MEDS: PIPERACILLIN/TAZOBACTAM 3,375 MG in SODIUM CHLORIDE 0.9% 100 ML IV SCH ×3 (01:58→17:19)
[2019-01-04 03:42] LABS: Basophils % 0.3 % (0.0-0.8); Hematocrit 35.8 VOL% (35.7-47.0); Hemoglobin 11.6 GM/DL (12.0-16.0); Immature Granulocytes % 1.7 %; Immature Granulocytes Absolute 0.21 #; Lymphocytes # 0.2 10*3/uL (1.4-4.0); Lymphocytes % 1.9 % (21.3-54.2); Mean Corpuscular HGB Conc 32.4 GM/DL (32-36); Mean Corpuscular Volume 100.3 FL (87-102); Monocytes % 3.8 % (1.7-12.7); Neutrophils % 92.3 % (38.7-73.9); Platelet Count 366 T/CUMM (130-400); Red Blood Count 3.57 MC/CUMM (3.8-5.5); Red Cell Distribution Width 14.2 % (9.3-17.3); White Blood Count 12.2 T/CUMM (4-12)
[2019-01-04 04:01] LABS: Calcium 9.2 MG/DL (8.5-10.1)
[2019-01-04 04:16] LABS: Lymphocytes 4 % (20-55); Metamyelocytes 1 %; Platelet Estimate Normal; Segmented Neutrophils 94 % (50-85); Total Cells Counted 100
[2019-01-04 04:25] LABS: Pt O2 Delivery Device Ventilator
[2019-01-04 04:30] LABS: ABG Base Excess 7.2 MMOL/L (-2.5-2.5); ABG HCO3 32.3 MMOL/L (20-26); ABG PCO2 48.4 MM HG (35-48); ABG PH 7.442 (7.35-7.45); ABG PO2 132.9 MM HG (80-95); ABG TCO2 33.8 MMOL/L (23-27)
[2019-01-04] MEDS: PROPOFOL 1,000 MG/100 ML BOTTLE IV SCH (04:49)
[2019-01-04] MEDS: VANCOMYCIN INJ 750 MG in SODIUM CHLORIDE 0.9% 250 ML IV SCH ×3 (06:17→23:49)
[2019-01-04] MEDS: DORNASE ALFA 2.5 MG/2.5 ML VIAL RESP TX SCH ×2 (06:45→19:55)
[2019-01-04] MEDS: MULTIVITAMIN (CENTRUM) TABLET PO SCH ×2 (08:24→22:15)
[2019-01-04] MEDS: LANSOPRAZOLE ODT 30 MG TABLET PER TUBE SCH ×2 (08:24→22:17)
[2019-01-04] MEDS: MAGNESIUM OXIDE 400 MG TABLET PO SCH (08:24)
[2019-01-04] MEDS: ACEBUTOLOL 200 MG CAPSULE PO SCH (08:24)
[2019-01-04] MEDS: ASPIRIN CHEW 81 MG TABLET PO SCH (08:24)
[2019-01-04] MEDS: METOCLOPRAMIDE 10 MG TABLET PO SCH ×3 (08:24→17:17)
[2019-01-04] MEDS: FOLIC ACID 1 MG TABLET PO SCH ×2 (08:24→22:16)
[2019-01-04] MEDS: methylPREDNISolone SOD SUC 40 MG/1 ML VIAL IV SCH ×2 (10:30→22:37)
[2019-01-04 11:06] LABS: ABG Base Excess 8.5 MMOL/L (-2.5-2.5); ABG HCO3 33.2 MMOL/L (20-26); ABG Oxygen Saturation 98.1 % (95-100); ABG PCO2 46.6 MM HG (35-48); ABG PH 7.471 (7.35-7.45); ABG PO2 103.2 MM HG (80-95); ABG TCO2 34.7 MMOL/L (23-27)
[2019-01-04] MEDS: FLUCONAZOLE INJ 100 MG in IV BAG 1 EACH IV SCH (11:44)
[2019-01-04] MEDS: LEVOFLOXACIN INJ 750 MG in PREMIX 1 EACH IV SCH (15:17)
[2019-01-04] MEDS: rOPINIRole 1 MG TABLET PO SCH (22:15)
[2019-01-04] MEDS: SERTRALINE 25 MG TABLET PO SCH (22:17)
[2019-01-04] MEDS: ALPRAZolam 0.5 MG TABLET PO SCH (22:18)
[2019-01-05] MEDS: INSULIN REGULAR 100 UNIT/ML SUBCUT SCH ×3 (00:03→13:19)
[2019-01-05] MEDS: LEVALBUTEROL 0.31 MG/3 ML NEB RESP TX SCH ×4 (01:12→19:29)
[2019-01-05] MEDS: IPRATROPIUM 500 MCG/2.5 ML NEB RESP TX SCH ×4 (01:12→19:29)
[2019-01-05] MEDS: PIPERACILLIN/TAZOBACTAM 3,375 MG in SODIUM CHLORIDE 0.9% 100 ML IV SCH ×2 (01:37→09:59)
[2019-01-05 03:17] LABS: ABG Base Excess 6.2 MMOL/L (-2.5-2.5); ABG PCO2 48.3 MM HG (35-48); ABG PH 7.429 (7.35-7.45); ABG PO2 96.5 MM HG (80-95); ABG TCO2 26.4 MMOL/L (23-27); Allen Test Positive; Pt O2 Delivery Device Venturi Mask
[2019-01-05 04:14] LABS: Basophils % 0.3 % (0.0-0.8); Eosinophils % 0.2 % (0.00-10.9); Hematocrit 34.8 VOL% (35.7-47.0); Hemoglobin 11.2 GM/DL (12.0-16.0); Immature Granulocytes % 2.3 %; Immature Granulocytes Absolute 0.25 #; Lymphocytes # 0.3 10*3/uL (1.4-4.0); Lymphocytes % 2.8 % (21.3-54.2); Mean Corpuscular HGB Conc 32.2 GM/DL (32-36); Mean Platelet Volume 8.6 FL (9.6-12.0); Monocytes % 3.5 % (1.7-12.7); Neutrophils % 90.9 % (38.7-73.9); Platelet Count 364 T/CUMM (130-400); Red Blood Count 3.48 MC/CUMM (3.8-5.5); White Blood Count 10.6 T/CUMM (4-12)
[2019-01-05 04:39] LABS: Calcium 8.8 MG/DL (8.5-10.1); Osmolality,Calculated 276.8 MOS/KG (273-304)
[2019-01-05 04:43] LABS: Lymphocytes 3 % (20-55); Platelet Estimate Normal; Segmented Neutrophils 97 % (50-85); Total Cells Counted 100
[2019-01-05] MEDS: DORNASE ALFA 2.5 MG/2.5 ML VIAL RESP TX SCH ×2 (06:59→19:29)
[2019-01-05] MEDS: METOCLOPRAMIDE 10 MG TABLET PO SCH ×3 (08:39→16:26)
[2019-01-05] MEDS: MULTIVITAMIN (CENTRUM) TABLET PO SCH ×3 (08:39→20:46)
[2019-01-05] MEDS: VANCOMYCIN INJ 750 MG in SODIUM CHLORIDE 0.9% 250 ML IV SCH ×2 (08:39→15:04)
[2019-01-05] MEDS: ACEBUTOLOL 200 MG CAPSULE PO SCH (08:39)
[2019-01-05] MEDS: FOLIC ACID 1 MG TABLET PO SCH ×2 (08:39→20:46)
[2019-01-05] MEDS: METHOCARBAMOL 750 MG TABLET PO PRN (08:39)
[2019-01-05] MEDS: LANSOPRAZOLE ODT 30 MG TABLET PER TUBE SCH ×2 (08:39→20:46)
[2019-01-05] MEDS: MAGNESIUM OXIDE 400 MG TABLET PO SCH (08:39)
[2019-01-05] MEDS: methylPREDNISolone SOD SUC 40 MG/1 ML VIAL IV SCH ×2 (09:59→17:15)
[2019-01-05] MEDS: FLUCONAZOLE INJ 100 MG in IV BAG 1 EACH IV SCH (10:30)
[2019-01-05] MEDS ORDERED: LEVOFLOXACIN INJ 500 MG in PREMIX 1 EACH IV SCH (16:00)
[2019-01-05] MEDS: rOPINIRole 1 MG TABLET PO SCH (20:46)
[2019-01-05] MEDS: SERTRALINE 25 MG TABLET PO SCH (20:46)
[2019-01-05] MEDS: ALPRAZolam 0.5 MG TABLET PO SCH (20:47)
[2019-01-06] MEDS: VANCOMYCIN INJ 750 MG in SODIUM CHLORIDE 0.9% 250 ML IV SCH ×2 (00:36→06:46)
[2019-01-06] MEDS: IPRATROPIUM 500 MCG/2.5 ML NEB RESP TX SCH ×4 (00:54→19:36)
[2019-01-06] MEDS: LEVALBUTEROL 0.31 MG/3 ML NEB RESP TX SCH ×4 (00:54→19:36)
[2019-01-06 03:08] LABS: ABG Base Excess 5.9 MMOL/L (-2.5-2.5); ABG HCO3 29.7 MMOL/L (20-26); ABG Oxygen Saturation 97.9 % (95-100); ABG PCO2 47.5 MM HG (35-48); ABG PH 7.427 (7.35-7.45); ABG TCO2 27.8 MMOL/L (23-27); Allen Test Positive; Pt O2 Delivery Device Other
[2019-01-06] MEDS: methylPREDNISolone SOD SUC 40 MG/1 ML VIAL IV SCH ×3 (04:05→17:41)
[2019-01-06 05:15] LABS: Basophils % 0.2 % (0.0-0.8); Eosinophils % 0.2 % (0.00-10.9); Hemoglobin 11.4 GM/DL (12.0-16.0); Immature Granulocytes % 1.8 %; Immature Granulocytes Absolute 0.19 #; Lymphocytes # 0.6 10*3/uL (1.4-4.0); Lymphocytes % 5.5 % (21.3-54.2); Mean Corpuscular HGB Conc 33.5 GM/DL (32-36); Mean Corpuscular Volume 97.4 FL (87-102); Mean Platelet Volume 9.1 FL (9.6-12.0); Monocytes % 6.5 % (1.7-12.7); Neutrophils % 85.8 % (38.7-73.9); Platelet Count 428 T/CUMM (130-400); Red Blood Count 3.49 MC/CUMM (3.8-5.5); White Blood Count 10.4 T/CUMM (4-12)
[2019-01-06 05:33] LABS: Calcium 9.3 MG/DL (8.5-10.1)
[2019-01-06] MEDS: DORNASE ALFA 2.5 MG/2.5 ML VIAL RESP TX SCH ×2 (07:46→19:36)
[2019-01-06] MEDS ORDERED: MORPHINE 4 MG/1 ML VIAL IV ONE (08:58)
[2019-01-06] MEDS: METOCLOPRAMIDE 10 MG TABLET PO SCH ×3 (09:10→17:41)
[2019-01-06] MEDS: FOLIC ACID 1 MG TABLET PO SCH ×2 (09:10→21:25)
[2019-01-06] MEDS: ASPIRIN CHEW 81 MG TABLET PO SCH (09:10)
[2019-01-06] MEDS: MULTIVITAMIN (CENTRUM) TABLET PO SCH ×2 (09:10→21:25)
[2019-01-06] MEDS: MAGNESIUM OXIDE 400 MG TABLET PO SCH (09:10)
[2019-01-06] MEDS: LANSOPRAZOLE ODT 30 MG TABLET PER TUBE SCH ×2 (09:10→21:25)
[2019-01-06] MEDS: ACEBUTOLOL 200 MG CAPSULE PO SCH (09:11)
[2019-01-06] MEDS ORDERED: FUROSEMIDE 40 MG/4 ML VIAL IV ONE (09:28)
[2019-01-06] MEDS: FLUCONAZOLE INJ 100 MG in IV BAG 1 EACH IV SCH (11:07)
[2019-01-06] MEDS: ALPRAZolam 0.5 MG TABLET PO SCH (21:25)
[2019-01-06] MEDS: rOPINIRole 1 MG TABLET PO SCH (21:25)
[2019-01-06] MEDS: SERTRALINE 25 MG TABLET PO SCH (21:25)
[2019-01-07] MEDS: LEVALBUTEROL 0.31 MG/3 ML NEB RESP TX SCH ×4 (00:27→19:26)
[2019-01-07] MEDS: IPRATROPIUM 500 MCG/2.5 ML NEB RESP TX SCH ×4 (00:27→19:26)
[2019-01-07] MEDS: METHOCARBAMOL 750 MG TABLET PO PRN (00:49)
[2019-01-07] MEDS: methylPREDNISolone SOD SUC 40 MG/1 ML VIAL IV SCH ×3 (02:47→18:50)
[2019-01-07 04:11] LABS: ABG Base Excess 10.1 MMOL/L (-2.5-2.5); ABG HCO3 35.7 MMOL/L (20-26); ABG Oxygen Saturation 96.8 % (95-100); ABG PCO2 53.1 MM HG (35-48); ABG PH 7.445 (7.35-7.45); ABG PO2 90.5 MM HG (80-95); ABG TCO2 37.3 MMOL/L (23-27); Allen Test Positive; Pt O2 Delivery Device Other
[2019-01-07 05:30] LABS: Basophils % 0.2 % (0.0-0.8); Hematocrit 35.2 VOL% (35.7-47.0); Hemoglobin 11.6 GM/DL (12.0-16.0); Immature Granulocytes % 1.4 %; Immature Granulocytes Absolute 0.17 #; Lymphocytes # 0.4 10*3/uL (1.4-4.0); Lymphocytes % 3.4 % (21.3-54.2); Mean Corpuscular Volume 98.3 FL (87-102); Monocytes % 3.7 % (1.7-12.7); Neutrophils % 91.3 % (38.7-73.9); Platelet Count 416 T/CUMM (130-400); Red Blood Count 3.58 MC/CUMM (3.8-5.5); White Blood Count 12.6 T/CUMM (4-12)
[2019-01-07 05:42] LABS: Calcium 9.5 MG/DL (8.5-10.1); Osmolality,Calculated 278.8 MOS/KG (273-304)
[2019-01-07] MEDS: DORNASE ALFA 2.5 MG/2.5 ML VIAL RESP TX SCH ×2 (07:18→19:37)
[2019-01-07 07:34] LABS: Lymphocytes 1 % (20-55); Ovalocytes Few; Segmented Neutrophils 95 % (50-85); Total Cells Counted 100
[2019-01-07 07:35] LABS: Anisocytosis 1+; Platelet Estimate Increased; Polychromasia Slight
[2019-01-07] MEDS: METOCLOPRAMIDE 10 MG TABLET PO SCH ×3 (09:45→17:05)
[2019-01-07] MEDS: MAGNESIUM OXIDE 400 MG TABLET PO SCH (09:45)
[2019-01-07] MEDS: MULTIVITAMIN (CENTRUM) TABLET PO SCH ×3 (09:45→21:50)
[2019-01-07] MEDS: LANSOPRAZOLE ODT 30 MG TABLET PER TUBE SCH ×2 (09:45→21:21)
[2019-01-07] MEDS: FOLIC ACID 1 MG TABLET PO SCH ×2 (09:45→21:21)
[2019-01-07] MEDS: FLUCONAZOLE INJ 100 MG in IV BAG 1 EACH IV SCH (09:46)
[2019-01-07] MEDS: ACEBUTOLOL 200 MG CAPSULE PO SCH ×2 (10:49→11:05)
[2019-01-07] MEDS: SERTRALINE 25 MG TABLET PO SCH (21:21)
[2019-01-07] MEDS: rOPINIRole 1 MG TABLET PO SCH (21:21)
[2019-01-08] MEDS: IPRATROPIUM 500 MCG/2.5 ML NEB RESP TX SCH ×4 (00:40→19:37)
[2019-01-08] MEDS: LEVALBUTEROL 0.31 MG/3 ML NEB RESP TX SCH ×4 (00:40→19:37)
[2019-01-08] MEDS: methylPREDNISolone SOD SUC 40 MG/1 ML VIAL IV SCH ×3 (01:55→23:34)
[2019-01-08] MEDS: DORNASE ALFA 2.5 MG/2.5 ML VIAL RESP TX SCH ×2 (07:23→19:37)
[2019-01-08] MEDS: FOLIC ACID 1 MG TABLET PO SCH ×2 (08:27→20:32)
[2019-01-08] MEDS: METOCLOPRAMIDE 10 MG TABLET PO SCH ×3 (08:27→16:59)
[2019-01-08] MEDS: MULTIVITAMIN (CENTRUM) TABLET PO SCH ×2 (08:27→20:33)
[2019-01-08] MEDS: MAGNESIUM OXIDE 400 MG TABLET PO SCH (08:28)
[2019-01-08] MEDS: LANSOPRAZOLE ODT 30 MG TABLET PER TUBE SCH ×2 (08:28→20:32)
[2019-01-08] MEDS: ACEBUTOLOL 200 MG CAPSULE PO SCH (08:28)
[2019-01-08] MEDS: FLUCONAZOLE INJ 100 MG in IV BAG 1 EACH IV SCH (10:25)
[2019-01-08] MEDS: METHOCARBAMOL 750 MG TABLET PO PRN (11:57)
[2019-01-08] MEDS: ALPRAZolam 0.5 MG TABLET PO SCH (20:32)
[2019-01-08] MEDS: SERTRALINE 25 MG TABLET PO SCH (20:32)
[2019-01-08] MEDS: rOPINIRole 1 MG TABLET PO SCH (20:32)
[2019-01-09] MEDS: LEVALBUTEROL 0.31 MG/3 ML NEB RESP TX SCH ×4 (01:51→19:12)
[2019-01-09] MEDS: IPRATROPIUM 500 MCG/2.5 ML NEB RESP TX SCH ×4 (01:51→19:12)
[2019-01-09 04:48] LABS: ABG Base Excess 1.6 MMOL/L (-2.5-2.5); ABG HCO3 25.7 MMOL/L (20-26); ABG Oxygen Saturation 90.7 % (95-100); ABG PCO2 40.1 MM HG (35-48); ABG PH 7.421 (7.35-7.45); ABG PO2 61.7 MM HG (80-95); ABG TCO2 22.9 MMOL/L (23-27); Allen Test Positive; Pt O2 Delivery Device Other
[2019-01-09 05:10] LABS: Basophils # 0.1 10*3/uL (0.0-0.2); Basophils % 0.3 % (0.0-0.8); Hematocrit 37.3 VOL% (35.7-47.0); Hemoglobin 12.5 GM/DL (12.0-16.0); Immature Granulocytes % 1.8 %; Immature Granulocytes Absolute 0.42 #; Lymphocytes # 0.6 10*3/uL (1.4-4.0); Lymphocytes % 2.6 % (21.3-54.2); Mean Corpuscular HGB Conc 33.5 GM/DL (32-36); Mean Corpuscular Volume 97.4 FL (87-102); Mean Platelet Volume 8.9 FL (9.6-12.0); Monocytes % 3.6 % (1.7-12.7); Neutrophils % 91.7 % (38.7-73.9); Platelet Count 509 T/CUMM (130-400); Red Blood Count 3.83 MC/CUMM (3.8-5.5); Red Cell Distribution Width 14.2 % (9.3-17.3); White Blood Count 23.1 T/CUMM (4-12)
[2019-01-09 05:38] LABS: Hypochromasia Slight; Lymphocytes 2 % (20-55); Platelet Estimate Adequate; Segmented Neutrophils 93 % (50-85); Total Cells Counted 100
[2019-01-09 05:40] LABS: Albumin 2.3 G/DL (3.4-5.0); Osmolality,Calculated 285.7 MOS/KG (273-304)
[2019-01-09] MEDS ORDERED: FUROSEMIDE 20 MG/2 ML VIAL IV ONE (07:36)
[2019-01-09] MEDS: DORNASE ALFA 2.5 MG/2.5 ML VIAL RESP TX SCH ×2 (07:45→19:22)
[2019-01-09] MEDS: FOLIC ACID 1 MG TABLET PO SCH ×2 (09:21→21:24)
[2019-01-09] MEDS: LANSOPRAZOLE ODT 30 MG TABLET PER TUBE SCH ×2 (09:21→21:25)
[2019-01-09] MEDS: METOCLOPRAMIDE 10 MG TABLET PO SCH ×3 (09:21→17:05)
[2019-01-09] MEDS: FLUCONAZOLE 100 MG TABLET PO SCH (09:21)
[2019-01-09] MEDS: MULTIVITAMIN (CENTRUM) TABLET PO SCH ×2 (09:21→21:25)
[2019-01-09] MEDS: MAGNESIUM OXIDE 400 MG TABLET PO SCH (09:22)
[2019-01-09] MEDS: ASPIRIN CHEW 81 MG TABLET PO SCH (09:22)
[2019-01-09] MEDS: ACEBUTOLOL 200 MG CAPSULE PO SCH (09:25)
[2019-01-09 09:51] LABS: ABG Base Excess 1.7 MMOL/L (-2.5-2.5); ABG HCO3 25.8 MMOL/L (20-26); ABG Oxygen Saturation 95.1 % (95-100); ABG PCO2 37.7 MM HG (35-48); ABG PH 7.441 (7.35-7.45); ABG PO2 77.5 MM HG (80-95); ABG TCO2 22.3 MMOL/L (23-27); Allen Test Positive; Pt O2 Delivery Device Other
[2019-01-09] MEDS: methylPREDNISolone SOD SUC 40 MG/1 ML VIAL IV SCH ×2 (11:45→23:26)
[2019-01-09] MEDS: METHOCARBAMOL 750 MG TABLET PO PRN (11:46)
[2019-01-09] MEDS: rOPINIRole 1 MG TABLET PO SCH (21:24)
[2019-01-09] MEDS: ALPRAZolam 0.5 MG TABLET PO SCH (21:24)
[2019-01-09] MEDS: SERTRALINE 25 MG TABLET PO SCH (21:24)
[2019-01-10] MEDS: IPRATROPIUM 500 MCG/2.5 ML NEB RESP TX SCH ×4 (00:17→20:42)
[2019-01-10] MEDS: LEVALBUTEROL 0.31 MG/3 ML NEB RESP TX SCH ×4 (00:17→20:42)
[2019-01-10 03:10] LABS: ABG Base Excess 3.8 MMOL/L (-2.5-2.5); ABG HCO3 27.7 MMOL/L (20-26); ABG Oxygen Saturation 94.3 % (95-100); ABG PCO2 40.5 MM HG (35-48); ABG PH 7.449 (7.35-7.45); ABG PO2 74.4 MM HG (80-95); ABG TCO2 24.6 MMOL/L (23-27); Allen Test Positive; Pt O2 Delivery Device Other
[2019-01-10 06:00] LABS: Basophils # 0.1 10*3/uL (0.0-0.2); Basophils % 0.3 % (0.0-0.8); Hemoglobin 12.2 GM/DL (12.0-16.0); Immature Granulocytes % 1.6 %; Immature Granulocytes Absolute 0.38 #; Lymphocytes # 0.6 10*3/uL (1.4-4.0); Lymphocytes % 2.7 % (21.3-54.2); Mean Corpuscular HGB Conc 33.9 GM/DL (32-36); Mean Corpuscular Volume 97.6 FL (87-102); Mean Platelet Volume 9.3 FL (9.6-12.0); Neutrophils % 93.4 % (38.7-73.9); Platelet Count 471 T/CUMM (130-400); Red Blood Count 3.69 MC/CUMM (3.8-5.5); Red Cell Distribution Width 14.3 % (9.3-17.3); White Blood Count 23.3 T/CUMM (4-12)
[2019-01-10 06:33] LABS: Hypochromasia Slight; Lymphocytes 2 % (20-55); Nucleated Red Blood Cells 1 (0-5); Ovalocytes Slight; Platelet Estimate Adequate; Segmented Neutrophils 95 % (50-85); Total Cells Counted 100
[2019-01-10 06:45] LABS: Calcium 10.2 MG/DL (8.5-10.1); Osmolality,Calculated 285.7 MOS/KG (273-304)
[2019-01-10] MEDS: DORNASE ALFA 2.5 MG/2.5 ML VIAL RESP TX SCH ×2 (07:54→20:42)
[2019-01-10] MEDS: METHOCARBAMOL 750 MG TABLET PO PRN ×2 (09:16→23:51)
[2019-01-10] MEDS: MULTIVITAMIN (CENTRUM) TABLET PO SCH ×2 (09:16→20:37)
[2019-01-10] MEDS: FOLIC ACID 1 MG TABLET PO SCH ×2 (09:16→20:36)
[2019-01-10] MEDS: ACEBUTOLOL 200 MG CAPSULE PO SCH (09:16)
[2019-01-10] MEDS: MAGNESIUM OXIDE 400 MG TABLET PO SCH (09:16)
[2019-01-10] MEDS: LANSOPRAZOLE ODT 30 MG TABLET PER TUBE SCH ×2 (09:17→20:36)
[2019-01-10] MEDS: FLUCONAZOLE 100 MG TABLET PO SCH (09:17)
[2019-01-10] MEDS: METOCLOPRAMIDE 10 MG TABLET PO SCH ×3 (09:17→16:35)
[2019-01-10] MEDS: methylPREDNISolone SOD SUC 40 MG/1 ML VIAL IV SCH ×2 (11:46→19:50)
[2019-01-10] MEDS: VANCOMYCIN INJ 750 MG in SODIUM CHLORIDE 0.9% 250 ML IV SCH (16:34)
[2019-01-10] MEDS: ENOXAPARIN 40 MG/0.4 ML SYRINGE SUBCUT SCH (16:36)
[2019-01-10] MEDS: LEVOFLOXACIN INJ 500 MG in PREMIX 1 EACH IV SCH (17:51)
[2019-01-10] MEDS: SERTRALINE 25 MG TABLET PO SCH (20:36)
[2019-01-10] MEDS: rOPINIRole 1 MG TABLET PO SCH (20:36)
[2019-01-10] MEDS: ALPRAZolam 0.5 MG TABLET PO SCH (20:36)
[2019-01-11] MEDS: IPRATROPIUM 500 MCG/2.5 ML NEB RESP TX SCH ×4 (02:02→19:40)
[2019-01-11] MEDS: LEVALBUTEROL 0.31 MG/3 ML NEB RESP TX SCH ×4 (02:02→19:40)
[2019-01-11] MEDS: methylPREDNISolone SOD SUC 40 MG/1 ML VIAL IV SCH ×3 (03:23→18:49)
[2019-01-11 04:16] LABS: ABG Base Excess 4.7 MMOL/L (-2.5-2.5); ABG HCO3 28.6 MMOL/L (20-26); ABG Oxygen Saturation 96.5 % (95-100); ABG PCO2 41.2 MM HG (35-48); ABG PH 7.455 (7.35-7.45); ABG PO2 88.2 MM HG (80-95); ABG TCO2 25.5 MMOL/L (23-27); Allen Test Positive
[2019-01-11 04:44] LABS: Basophils # 0.1 10*3/uL (0.0-0.2); Basophils % 0.4 % (0.0-0.8); Hematocrit 33.6 VOL% (35.7-47.0); Hemoglobin 11.1 GM/DL (12.0-16.0); Immature Granulocytes % 1.7 %; Immature Granulocytes Absolute 0.37 #; Lymphocytes # 0.5 10*3/uL (1.4-4.0); Lymphocytes % 2.2 % (21.3-54.2); Mean Corpuscular Volume 99.1 FL (87-102); Mean Platelet Volume 9.3 FL (9.6-12.0); Monocytes % 1.3 % (1.7-12.7); Neutrophils % 94.4 % (38.7-73.9); Platelet Count 411 T/CUMM (130-400); Red Blood Count 3.39 MC/CUMM (3.8-5.5); Red Cell Distribution Width 14.3 % (9.3-17.3); White Blood Count 22.1 T/CUMM (4-12)
[2019-01-11 05:02] LABS: Albumin 2.1 G/DL (3.4-5.0); Bilirubin,Total 0.7 MG/DL (0.2-1.0); Calcium 9.7 MG/DL (8.5-10.1); Osmolality,Calculated 282.7 MOS/KG (273-304)
[2019-01-11 05:26] LABS: Band Neutrophils 1 % (0-10); Lymphocytes 1 % (20-55); Segmented Neutrophils 97 % (50-85); Total Cells Counted 100
[2019-01-11 05:27] LABS: Hypochromasia Slight; Platelet Estimate Adequate
[2019-01-11] MEDS: VANCOMYCIN INJ 750 MG in SODIUM CHLORIDE 0.9% 250 ML IV SCH ×2 (05:46→18:00)
[2019-01-11] MEDS: DORNASE ALFA 2.5 MG/2.5 ML VIAL RESP TX SCH ×2 (07:25→19:40)
[2019-01-11] MEDS: FLUCONAZOLE 100 MG TABLET PO SCH (08:49)
[2019-01-11] MEDS: MULTIVITAMIN (CENTRUM) TABLET PO SCH ×2 (08:49→21:56)
[2019-01-11] MEDS: MAGNESIUM OXIDE 400 MG TABLET PO SCH (08:50)
[2019-01-11] MEDS: FOLIC ACID 1 MG TABLET PO SCH ×2 (08:50→21:19)
[2019-01-11] MEDS: LANSOPRAZOLE ODT 30 MG TABLET PER TUBE SCH ×2 (08:50→21:19)
[2019-01-11] MEDS: METOCLOPRAMIDE 10 MG TABLET PO SCH ×3 (08:50→18:00)
[2019-01-11] MEDS: ACEBUTOLOL 200 MG CAPSULE PO SCH (08:50)
[2019-01-11] MEDS: ASPIRIN CHEW 81 MG TABLET PO SCH (08:51)
[2019-01-11] MEDS: LEVOFLOXACIN INJ 500 MG in PREMIX 1 EACH IV SCH (15:06)
[2019-01-11] MEDS: ENOXAPARIN 40 MG/0.4 ML SYRINGE SUBCUT SCH (15:07)
[2019-01-11] MEDS: SERTRALINE 25 MG TABLET PO SCH (21:19)
[2019-01-11] MEDS: rOPINIRole 1 MG TABLET PO SCH (21:19)
[2019-01-11] MEDS: ALPRAZolam 0.5 MG TABLET PO SCH (21:19)
[2019-01-12] MEDS: IPRATROPIUM 500 MCG/2.5 ML NEB RESP TX SCH ×4 (00:20→19:38)
[2019-01-12] MEDS: LEVALBUTEROL 0.31 MG/3 ML NEB RESP TX SCH ×4 (00:20→19:38)
[2019-01-12] MEDS: methylPREDNISolone SOD SUC 40 MG/1 ML VIAL IV SCH ×3 (02:07→21:41)
[2019-01-12 04:33] LABS: Basophils # 0.1 10*3/uL (0.0-0.2); Basophils % 0.3 % (0.0-0.8); Hemoglobin 10.3 GM/DL (12.0-16.0); Immature Granulocytes % 1.6 %; Immature Granulocytes Absolute 0.34 #; Lymphocytes # 0.3 10*3/uL (1.4-4.0); Lymphocytes % 1.5 % (21.3-54.2); Mean Corpuscular HGB Conc 33.2 GM/DL (32-36); Mean Platelet Volume 9.3 FL (9.6-12.0); Monocytes % 1.9 % (1.7-12.7); Neutrophils % 94.7 % (38.7-73.9); Platelet Count 390 T/CUMM (130-400); Red Blood Count 3.13 MC/CUMM (3.8-5.5); Red Cell Distribution Width 14.3 % (9.3-17.3); White Blood Count 21.9 T/CUMM (4-12)
[2019-01-12 04:47] LABS: ABG Base Excess 5.3 MMOL/L (-2.5-2.5); ABG HCO3 29.2 MMOL/L (20-26); ABG Oxygen Saturation 94.1 % (95-100); ABG PCO2 43.5 MM HG (35-48); ABG PH 7.446 (7.35-7.45); ABG PO2 77.3 MM HG (80-95); ABG TCO2 27.4 MMOL/L (23-27); Allen Test Positive
[2019-01-12 05:05] LABS: Albumin 1.9 G/DL (3.4-5.0); Bilirubin,Total 0.6 MG/DL (0.2-1.0); Osmolality,Calculated 280.8 MOS/KG (273-304); Total Protein 6.4 G/DL (6.4-8.3)
[2019-01-12 05:32] LABS: Band Neutrophils 3 % (0-10); Lymphocytes 2 % (20-55); Segmented Neutrophils 94 % (50-85); Total Cells Counted 100
[2019-01-12 05:33] LABS: Anisocytosis 1+; Ovalocytes 1+; Platelet Estimate Adequate
[2019-01-12] MEDS: VANCOMYCIN INJ 750 MG in SODIUM CHLORIDE 0.9% 250 ML IV SCH ×2 (05:35→17:15)
[2019-01-12] MEDS: DORNASE ALFA 2.5 MG/2.5 ML VIAL RESP TX SCH ×2 (07:42→19:38)
[2019-01-12] MEDS: METOCLOPRAMIDE 10 MG TABLET PO SCH ×3 (08:03→17:00)
[2019-01-12] MEDS: FLUCONAZOLE 100 MG TABLET PO SCH (09:40)
[2019-01-12] MEDS: MULTIVITAMIN (CENTRUM) TABLET PO SCH ×2 (09:40→21:40)
[2019-01-12] MEDS: FOLIC ACID 1 MG TABLET PO SCH ×2 (09:40→21:41)
[2019-01-12] MEDS: LANSOPRAZOLE ODT 30 MG TABLET PER TUBE SCH ×2 (09:40→21:41)
[2019-01-12] MEDS: MAGNESIUM OXIDE 400 MG TABLET PO SCH (09:40)
[2019-01-12] MEDS: ACEBUTOLOL 200 MG CAPSULE PO SCH (09:40)
[2019-01-12] MEDS: ENOXAPARIN 40 MG/0.4 ML SYRINGE SUBCUT SCH (15:19)
[2019-01-12] MEDS: LEVOFLOXACIN INJ 500 MG in PREMIX 1 EACH IV SCH (15:20)
[2019-01-12] MEDS: METHOCARBAMOL 750 MG TABLET PO PRN (21:40)
[2019-01-12] MEDS: rOPINIRole 1 MG TABLET PO SCH (21:40)
[2019-01-12] MEDS: ALPRAZolam 0.5 MG TABLET PO SCH (21:40)
[2019-01-12] MEDS: SERTRALINE 25 MG TABLET PO SCH (21:40)
[2019-01-13] MEDS: LEVALBUTEROL 0.31 MG/3 ML NEB RESP TX SCH ×4 (01:55→19:03)
[2019-01-13] MEDS: IPRATROPIUM 500 MCG/2.5 ML NEB RESP TX SCH ×4 (01:55→19:03)
[2019-01-13] MEDS: methylPREDNISolone SOD SUC 40 MG/1 ML VIAL IV SCH ×3 (04:32→18:29)
[2019-01-13] MEDS: VANCOMYCIN INJ 750 MG in SODIUM CHLORIDE 0.9% 250 ML IV SCH ×2 (04:33→17:30)
[2019-01-13 04:41] LABS: ABG HCO3 30.7 MMOL/L (20-26); ABG Oxygen Saturation 95.1 % (95-100); ABG PCO2 42.3 MM HG (35-48); ABG PH 7.477 (7.35-7.45); ABG PO2 72.6 MM HG (80-95); ABG TCO2 28.2 MMOL/L (23-27); Allen Test Positive
[2019-01-13 05:33] LABS: Basophils % 0.2 % (0.0-0.8); Hemoglobin 9.5 GM/DL (12.0-16.0); Immature Granulocytes % 1.5 %; Immature Granulocytes Absolute 0.27 #; Lymphocytes # 0.3 10*3/uL (1.4-4.0); Lymphocytes % 1.7 % (21.3-54.2); Mean Corpuscular HGB Conc 32.8 GM/DL (32-36); Mean Corpuscular Volume 98.3 FL (87-102); Mean Platelet Volume 9.1 FL (9.6-12.0); Monocytes % 1.8 % (1.7-12.7); Neutrophils % 94.8 % (38.7-73.9); Platelet Count 327 T/CUMM (130-400); Red Blood Count 2.95 MC/CUMM (3.8-5.5); Red Cell Distribution Width 14.2 % (9.3-17.3); White Blood Count 17.5 T/CUMM (4-12)
[2019-01-13 05:48] LABS: Albumin 1.7 G/DL (3.4-5.0); Bilirubin,Total 0.9 MG/DL (0.2-1.0); Calcium 9.5 MG/DL (8.5-10.1); Osmolality,Calculated 274.1 MOS/KG (273-304); Total Protein 6.1 G/DL (6.4-8.3)
[2019-01-13 06:31] LABS: Anisocytosis Slight; Band Neutrophils 9 % (0-10); Lymphocytes 1 % (20-55); Platelet Estimate Normal; Segmented Neutrophils 89 % (50-85); Total Cells Counted 100
[2019-01-13 06:32] LABS: Polychromasia Slight
[2019-01-13] MEDS: METOCLOPRAMIDE 10 MG TABLET PO SCH ×3 (06:46→16:06)
[2019-01-13] MEDS: DORNASE ALFA 2.5 MG/2.5 ML VIAL RESP TX SCH ×2 (07:57→19:03)
[2019-01-13] MEDS: MULTIVITAMIN (CENTRUM) TABLET PO SCH ×2 (09:50→21:37)
[2019-01-13] MEDS: MAGNESIUM SULF RIDER 2 GM in PREMIX 1 EACH IV PRN (09:50)
[2019-01-13] MEDS: ASPIRIN CHEW 81 MG TABLET PO SCH (09:50)
[2019-01-13] MEDS: LANSOPRAZOLE ODT 30 MG TABLET PER TUBE SCH ×2 (09:50→21:40)
[2019-01-13] MEDS: MAGNESIUM OXIDE 400 MG TABLET PO SCH (09:50)
[2019-01-13] MEDS: FOLIC ACID 1 MG TABLET PO SCH ×2 (09:50→21:38)
[2019-01-13] MEDS: ACEBUTOLOL 200 MG CAPSULE PO SCH (13:55)
[2019-01-13] MEDS: ENOXAPARIN 40 MG/0.4 ML SYRINGE SUBCUT SCH (15:17)
[2019-01-13] MEDS: LEVOFLOXACIN INJ 500 MG in PREMIX 1 EACH IV SCH (15:17)
[2019-01-13] MEDS: ITRACONAZOLE 100 MG CAPSULE PO SCH (21:37)
[2019-01-13] MEDS: rOPINIRole 1 MG TABLET PO SCH (21:38)
[2019-01-13] MEDS: SERTRALINE 25 MG TABLET PO SCH (21:40)
[2019-01-14] MEDS: IPRATROPIUM 500 MCG/2.5 ML NEB RESP TX SCH ×4 (01:04→20:40)
[2019-01-14] MEDS: LEVALBUTEROL 0.31 MG/3 ML NEB RESP TX SCH ×4 (01:04→20:40)
[2019-01-14] MEDS: methylPREDNISolone SOD SUC 40 MG/1 ML VIAL IV SCH ×3 (03:14→14:48)
[2019-01-14] MEDS: VANCOMYCIN INJ 750 MG in SODIUM CHLORIDE 0.9% 250 ML IV SCH (04:58)
[2019-01-14 06:01] LABS: Basophils # 0.1 10*3/uL (0.0-0.2); Basophils % 0.3 % (0.0-0.8); Hematocrit 27.9 VOL% (35.7-47.0); Hemoglobin 9.4 GM/DL (12.0-16.0); Immature Granulocytes % 1.3 %; Immature Granulocytes Absolute 0.24 #; Lymphocytes # 0.3 10*3/uL (1.4-4.0); Lymphocytes % 1.4 % (21.3-54.2); Mean Corpuscular HGB Conc 33.7 GM/DL (32-36); Mean Corpuscular Volume 97.2 FL (87-102); Mean Platelet Volume 9.4 FL (9.6-12.0); Monocytes % 1.4 % (1.7-12.7); Neutrophils % 95.6 % (38.7-73.9); Platelet Count 317 T/CUMM (130-400); Red Blood Count 2.87 MC/CUMM (3.8-5.5); Red Cell Distribution Width 14.4 % (9.3-17.3); White Blood Count 18.2 T/CUMM (4-12)
[2019-01-14 06:23] LABS: Calcium 9.5 MG/DL (8.5-10.1); Osmolality,Calculated 274.8 MOS/KG (273-304)
[2019-01-14 06:24] LABS: Platelet Estimate Normal; Polychromasia Few; Segmented Neutrophils 100 % (50-85); Total Cells Counted 100
[2019-01-14] MEDS: DORNASE ALFA 2.5 MG/2.5 ML VIAL RESP TX SCH (07:36)
[2019-01-14] MEDS: MAGNESIUM OXIDE 400 MG TABLET PO SCH (08:42)
[2019-01-14] MEDS: ACEBUTOLOL 200 MG CAPSULE PO SCH (08:42)
[2019-01-14] MEDS: MULTIVITAMIN (CENTRUM) TABLET PO SCH ×3 (08:42→21:02)
[2019-01-14] MEDS: METOCLOPRAMIDE 10 MG TABLET PO SCH ×3 (08:43→15:42)
[2019-01-14] MEDS: LANSOPRAZOLE ODT 30 MG TABLET PER TUBE SCH ×2 (08:43→21:02)
[2019-01-14] MEDS: FOLIC ACID 1 MG TABLET PO SCH ×2 (08:43→21:02)
[2019-01-14] MEDS: ITRACONAZOLE 100 MG CAPSULE PO SCH ×2 (08:43→21:02)
[2019-01-14 09:12] LABS: Albumin 1.7 G/DL (3.4-5.0); Bilirubin,Direct 0.13 MG/DL (0.0-0.20); Bilirubin,Indirect 0.3 MG/DL (0.0-1.0); Bilirubin,Total 0.4 MG/DL (0.2-1.0); Total Protein 6.3 G/DL (6.4-8.3)
[2019-01-14] MEDS: LEVOFLOXACIN INJ 500 MG in PREMIX 1 EACH IV SCH (15:41)
[2019-01-14] MEDS: ENOXAPARIN 40 MG/0.4 ML SYRINGE SUBCUT SCH (15:41)
[2019-01-14] MEDS: ACETYLCYSTEINE 20% 800 MG/4 ML VIAL RESP TX SCH (20:40)
[2019-01-14] MEDS: rOPINIRole 1 MG TABLET PO SCH (21:02)
[2019-01-14] MEDS: SERTRALINE 25 MG TABLET PO SCH (21:02)
[2019-01-15] MEDS: LEVALBUTEROL 0.31 MG/3 ML NEB RESP TX SCH ×4 (00:39→19:25)
[2019-01-15] MEDS: IPRATROPIUM 500 MCG/2.5 ML NEB RESP TX SCH ×4 (00:39→19:25)
[2019-01-15] MEDS: METHOCARBAMOL 750 MG TABLET PO PRN ×2 (00:53→09:41)
[2019-01-15] MEDS: methylPREDNISolone SOD SUC 40 MG/1 ML VIAL IV SCH ×2 (01:05→14:09)
[2019-01-15 06:39] LABS: Basophils # 0.1 10*3/uL (0.0-0.2); Basophils % 0.4 % (0.0-0.8); Hematocrit 30.7 VOL% (35.7-47.0); Hemoglobin 9.9 GM/DL (12.0-16.0); Immature Granulocytes % 3.2 %; Immature Granulocytes Absolute 0.58 #; Lymphocytes # 0.2 10*3/uL (1.4-4.0); Lymphocytes % 1.3 % (21.3-54.2); Mean Corpuscular HGB Conc 32.2 GM/DL (32-36); Mean Corpuscular Volume 100.3 FL (87-102); Mean Platelet Volume 9.9 FL (9.6-12.0); Monocytes % 1.3 % (1.7-12.7); Neutrophils % 93.8 % (38.7-73.9); Platelet Count 311 T/CUMM (130-400); Red Blood Count 3.06 MC/CUMM (3.8-5.5); Red Cell Distribution Width 14.6 % (9.3-17.3); White Blood Count 18.3 T/CUMM (4-12)
[2019-01-15 06:55] LABS: Albumin 1.7 G/DL (3.4-5.0); Bilirubin,Total 0.8 MG/DL (0.2-1.0); Calcium 9.6 MG/DL (8.5-10.1); Osmolality,Calculated 273.1 MOS/KG (273-304); Total Protein 6.6 G/DL (6.4-8.3)
[2019-01-15 07:03] LABS: Band Neutrophils 8 % (0-10); Lymphocytes 3 % (20-55); Platelet Estimate Normal; Segmented Neutrophils 88 % (50-85); Total Cells Counted 100
[2019-01-15] MEDS: ACETYLCYSTEINE 20% 800 MG/4 ML VIAL RESP TX SCH ×3 (07:15→23:40)
[2019-01-15] MEDS ORDERED: SODIUM CHLORIDE 0.9% 500 ML IV ONE (08:29)
[2019-01-15] MEDS: METOCLOPRAMIDE 10 MG TABLET PO SCH (08:46)
[2019-01-15] MEDS: SODIUM CHLORIDE 0.9% 1,000 ML IV SCH ×2 (09:01→22:16)
[2019-01-15] MEDS: MAGNESIUM OXIDE 400 MG TABLET PO SCH (09:42)
[2019-01-15] MEDS: FOLIC ACID 1 MG TABLET PO SCH ×2 (09:42→21:58)
[2019-01-15] MEDS: MULTIVITAMIN (CENTRUM) TABLET PO SCH ×2 (09:42→21:58)
[2019-01-15] MEDS: ITRACONAZOLE 100 MG CAPSULE PO SCH ×2 (09:42→21:57)
[2019-01-15] MEDS: LANSOPRAZOLE ODT 30 MG TABLET PER TUBE SCH ×2 (09:42→21:58)
[2019-01-15] MEDS: ACEBUTOLOL 200 MG CAPSULE PO SCH (10:00)
[2019-01-15 10:19] LABS: Amorphous Crystals,Urine Few /HPF (Few); Apearance,Urine CLOUDY (Clear); Bacteria,Urine Occasional /HPF (Few); Bilirubin,Urine Negative (Negative); Blood, Urine Negative (Negative); Glucose,Urine (UA) Negative (Negative); Ketones,Urine Negative (Negative); Mucus,Urine Occasional /LPF (Occasional); Nitrite,Urine Negative (Negative); Protein,Urine 30 MG/DL; RBC,Urine 12 /HPF (0-4); Squamous Epithelial Cell,Urine Occasional /HPF (0-10); Urine Specific Gravity 1.016 (1.001-1.035); Urine Urobilinogen < 2.0 EU/DL (0.2-1.0); WBC,Urine 3 /HPF (0-6)
[2019-01-15 10:20] LABS: Urine Color Yellow (Yellow)
[2019-01-15] MEDS: ONDANSETRON 4 MG/2 ML VIAL IV PRN ×2 (14:08→17:56)
[2019-01-15] MEDS: LEVOFLOXACIN INJ 500 MG in PREMIX 1 EACH IV SCH (14:10)
[2019-01-15] MEDS: ENOXAPARIN 40 MG/0.4 ML SYRINGE SUBCUT SCH (14:52)
[2019-01-15] MEDS: rOPINIRole 1 MG TABLET PO SCH (21:57)
[2019-01-15] MEDS: SERTRALINE 25 MG TABLET PO SCH (21:58)
[2019-01-16] MEDS: LEVALBUTEROL 0.31 MG/3 ML NEB RESP TX SCH ×4 (00:45→19:10)
[2019-01-16] MEDS: IPRATROPIUM 500 MCG/2.5 ML NEB RESP TX SCH ×4 (00:45→19:10)
[2019-01-16] MEDS: methylPREDNISolone SOD SUC 40 MG/1 ML VIAL IV SCH ×2 (02:46→15:23)
[2019-01-16 04:51] LABS: Basophils # 0.1 10*3/uL (0.0-0.2); Basophils % 0.6 % (0.0-0.8); Hematocrit 27.5 VOL% (35.7-47.0); Hemoglobin 9.1 GM/DL (12.0-16.0); Immature Granulocytes % 2.3 %; Immature Granulocytes Absolute 0.34 #; Lymphocytes # 0.2 10*3/uL (1.4-4.0); Lymphocytes % 1.5 % (21.3-54.2); Mean Corpuscular HGB Conc 33.1 GM/DL (32-36); Mean Corpuscular Volume 98.9 FL (87-102); Mean Platelet Volume 9.4 FL (9.6-12.0); Monocytes % 1.8 % (1.7-12.7); Neutrophils % 93.8 % (38.7-73.9); Platelet Count 284 T/CUMM (130-400); Red Blood Count 2.78 MC/CUMM (3.8-5.5); Red Cell Distribution Width 14.6 % (9.3-17.3)
[2019-01-16 05:04] LABS: Calcium 9.2 MG/DL (8.5-10.1); Osmolality,Calculated 268.2 MOS/KG (273-304)
[2019-01-16 05:37] LABS: Band Neutrophils 10 % (0-10); Lymphocytes 3 % (20-55); Segmented Neutrophils 86 % (50-85); Total Cells Counted 100
[2019-01-16 05:38] LABS: Microcytosis Slight; Ovalocytes Slight
[2019-01-16 05:39] LABS: Platelet Estimate Normal
[2019-01-16] MEDS: ACETAMINOPHEN 325 MG TABLET PO PRN (07:10)
[2019-01-16] MEDS: ACETYLCYSTEINE 20% 800 MG/4 ML VIAL RESP TX SCH ×3 (08:27→23:00)
[2019-01-16] MEDS: LANSOPRAZOLE ODT 30 MG TABLET PER TUBE SCH ×2 (09:11→21:05)
[2019-01-16] MEDS: ITRACONAZOLE 100 MG CAPSULE PO SCH (09:11)
[2019-01-16] MEDS: MAGNESIUM OXIDE 400 MG TABLET PO SCH (09:11)
[2019-01-16] MEDS: MULTIVITAMIN (CENTRUM) TABLET PO SCH ×3 (09:11→21:30)
[2019-01-16] MEDS: ASPIRIN CHEW 81 MG TABLET PO SCH (09:11)
[2019-01-16] MEDS: FOLIC ACID 1 MG TABLET PO SCH ×2 (09:11→21:05)
[2019-01-16] MEDS: ACEBUTOLOL 200 MG CAPSULE PO SCH (09:14)
[2019-01-16] MEDS: MAGNESIUM SULF RIDER 2 GM in PREMIX 1 EACH IV PRN (09:16)
[2019-01-16] MEDS: VANCOMYCIN INJ 750 MG in SODIUM CHLORIDE 0.9% 250 ML IV SCH ×2 (12:10→23:01)
[2019-01-16] MEDS: METHOCARBAMOL 500 MG TABLET PO PRN (14:15)
[2019-01-16] MEDS: ENOXAPARIN 40 MG/0.4 ML SYRINGE SUBCUT SCH (15:22)
[2019-01-16] MEDS: LEVOFLOXACIN INJ 500 MG in PREMIX 1 EACH IV SCH (15:23)
[2019-01-16] MEDS: SODIUM CHLORIDE 0.9% 1,000 ML IV SCH (15:30)
[2019-01-16] MEDS: rOPINIRole 1 MG TABLET PO SCH (21:05)
[2019-01-16] MEDS: SERTRALINE 25 MG TABLET PO SCH (21:05)
[2019-01-17] MEDS: methylPREDNISolone SOD SUC 40 MG/1 ML VIAL IV SCH ×2 (01:43→18:26)
[2019-01-17 04:13] LABS: Basophils # 0.1 10*3/uL (0.0-0.2); Basophils % 0.9 % (0.0-0.8); Hematocrit 24.9 VOL% (35.7-47.0); Hemoglobin 8.3 GM/DL (12.0-16.0); Immature Granulocytes % 2.8 %; Immature Granulocytes Absolute 0.37 #; Lymphocytes # 0.2 10*3/uL (1.4-4.0); Lymphocytes % 1.6 % (21.3-54.2); Mean Corpuscular HGB Conc 33.3 GM/DL (32-36); Mean Platelet Volume 9.5 FL (9.6-12.0); Monocytes % 1.7 % (1.7-12.7); Platelet Count 245 T/CUMM (130-400); Red Blood Count 2.54 MC/CUMM (3.8-5.5); Red Cell Distribution Width 14.9 % (9.3-17.3); White Blood Count 13.1 T/CUMM (4-12)
[2019-01-17 04:37] LABS: Calcium 8.8 MG/DL (8.5-10.1); Osmolality,Calculated 271.1 MOS/KG (273-304)
[2019-01-17 05:09] LABS: Lymphocytes 1 % (20-55); Platelet Estimate Adequate; Polychromasia Few; Segmented Neutrophils 99 % (50-85); Total Cells Counted 100
[2019-01-17] MEDS: ACETYLCYSTEINE 20% 800 MG/4 ML VIAL RESP TX SCH ×2 (08:10→16:55)
[2019-01-17] MEDS: IPRATROPIUM 500 MCG/2.5 ML NEB RESP TX SCH ×4 (08:10→19:10)
[2019-01-17] MEDS: LEVALBUTEROL 0.31 MG/3 ML NEB RESP TX SCH ×4 (08:10→19:10)
[2019-01-17 08:26] LABS: ABG Base Excess 4.8 MMOL/L (-2.5-2.5); ABG HCO3 28.4 MMOL/L (20-26); ABG Oxygen Saturation 83.5 % (95-100); ABG PCO2 37.3 MM HG (35-48); ABG PH 7.488 (7.35-7.45); ABG TCO2 25.4 MMOL/L (23-27); Allen Test Positive
[2019-01-17] MEDS ORDERED: methylPREDNISolone SOD SUC 125 MG/2 ML VIAL ONE (08:40)
[2019-01-17] MEDS ORDERED: methylPREDNISolone SOD SUC 125 MG/2 ML VIAL IV ONE (09:00)
[2019-01-17] MEDS ORDERED: SODIUM CHLORIDE 0.9% 1,000 ML IV PRN (09:15)
[2019-01-17] MEDS: SODIUM CHLORIDE 0.9% 1,000 ML IV SCH (09:31)
[2019-01-17] MEDS: MULTIVITAMIN (CENTRUM) TABLET PO SCH ×2 (10:07→20:56)
[2019-01-17] MEDS: FOLIC ACID 1 MG TABLET PO SCH ×2 (10:07→21:30)
[2019-01-17] MEDS: MAGNESIUM OXIDE 400 MG TABLET PO SCH (10:07)
[2019-01-17] MEDS: LANSOPRAZOLE ODT 30 MG TABLET PER TUBE SCH ×2 (10:07→21:30)
[2019-01-17] MEDS: ACEBUTOLOL 200 MG CAPSULE PO SCH (10:08)
[2019-01-17] MEDS: VANCOMYCIN INJ 750 MG in SODIUM CHLORIDE 0.9% 250 ML IV SCH ×2 (10:46→23:44)
[2019-01-17] MEDS: LEVOFLOXACIN INJ 500 MG in PREMIX 1 EACH IV SCH (14:49)
[2019-01-17] MEDS: ENOXAPARIN 40 MG/0.4 ML SYRINGE SUBCUT SCH (14:49)
[2019-01-17] MEDS: METHOCARBAMOL 500 MG TABLET PO PRN (18:28)
[2019-01-17] MEDS: DORNASE ALFA 2.5 MG/2.5 ML VIAL RESP TX SCH (19:10)
[2019-01-17] MEDS: rOPINIRole 1 MG TABLET PO SCH (21:30)
[2019-01-17] MEDS: SERTRALINE 25 MG TABLET PO SCH (21:31)
[2019-01-18] MEDS: IPRATROPIUM 500 MCG/2.5 ML NEB RESP TX SCH ×4 (00:55→19:48)
[2019-01-18] MEDS: LEVALBUTEROL 0.31 MG/3 ML NEB RESP TX SCH ×4 (00:55→19:48)
[2019-01-18] MEDS: methylPREDNISolone SOD SUC 40 MG/1 ML VIAL IV SCH ×3 (01:59→18:05)
[2019-01-18 03:41] LABS: Allen Test Positive; Pt O2 Delivery Device Other
[2019-01-18 03:45] LABS: ABG Base Excess 5.3 MMOL/L (-2.5-2.5); ABG HCO3 29.2 MMOL/L (20-26); ABG Oxygen Saturation 95.3 % (95-100); ABG PCO2 42.6 MM HG (35-48); ABG PH 7.453 (7.35-7.45); ABG PO2 76.7 MM HG (80-95); ABG TCO2 26.2 MMOL/L (23-27)
[2019-01-18 04:00] LABS: Basophils % 0.1 % (0.0-0.8); Hematocrit 36.5 VOL% (35.7-47.0); Hemoglobin 12.4 GM/DL (12.0-16.0); Immature Granulocytes % 3.7 %; Immature Granulocytes Absolute 0.55 #; Lymphocytes # 0.2 10*3/uL (1.4-4.0); Lymphocytes % 1.6 % (21.3-54.2); Mean Corpuscular Volume 93.1 FL (87-102); Mean Platelet Volume 10.4 FL (9.6-12.0); Monocytes % 1.2 % (1.7-12.7); Neutrophils % 93.4 % (38.7-73.9); Platelet Count 210 T/CUMM (130-400); Red Blood Count 3.92 MC/CUMM (3.8-5.5); Red Cell Distribution Width 16.3 % (9.3-17.3); White Blood Count 14.8 T/CUMM (4-12)
[2019-01-18 04:20] LABS: Calcium 9.2 MG/DL (8.5-10.1); Osmolality,Calculated 266.4 MOS/KG (273-304)
[2019-01-18 06:40] LABS: Band Neutrophils 19 % (0-10); Lymphocytes 3 % (20-55); Platelet Estimate Normal; Segmented Neutrophils 76 % (50-85); Total Cells Counted 100
[2019-01-18] MEDS: DORNASE ALFA 2.5 MG/2.5 ML VIAL RESP TX SCH ×2 (08:00→19:58)
[2019-01-18] MEDS: ACEBUTOLOL 200 MG CAPSULE PO SCH (08:19)
[2019-01-18] MEDS: ASPIRIN CHEW 81 MG TABLET PO SCH (08:33)
[2019-01-18] MEDS: LANSOPRAZOLE ODT 30 MG TABLET PER TUBE SCH ×2 (08:33→21:35)
[2019-01-18] MEDS ORDERED: POTASSIUM CHLORIDE RIDER 10 MEQ in PREMIX 1 EACH IV PRN (08:50)
[2019-01-18] MEDS ORDERED: POTASSIUM CHLORIDE RIDER 20 MEQ in PREMIX 1 EACH IV PRN (08:53)
[2019-01-18] MEDS: MULTIVITAMIN (CENTRUM) TABLET PO SCH ×2 (08:59→21:35)
[2019-01-18] MEDS: FOLIC ACID 1 MG TABLET PO SCH ×2 (09:00→21:35)
[2019-01-18] MEDS: MAGNESIUM OXIDE 400 MG TABLET PO SCH (09:00)
[2019-01-18] MEDS: DEXTROSE 5% NACL 0.45% 1,000 ML IV SCH (10:27)
[2019-01-18] MEDS: VANCOMYCIN INJ 750 MG in SODIUM CHLORIDE 0.9% 250 ML IV SCH ×2 (10:40→23:55)
[2019-01-18] MEDS: POTASSIUM CHLORIDE RIDER 10 MEQ in PREMIX 1 EACH IV PRN ×5 (13:00→23:55)
[2019-01-18] MEDS: HYDROmorphone 2 MG/1 ML VIAL IV PRN ×2 (13:09→17:47)
[2019-01-18] MEDS: LEVOFLOXACIN INJ 500 MG in PREMIX 1 EACH IV SCH (15:39)
[2019-01-18] MEDS: ENOXAPARIN 40 MG/0.4 ML SYRINGE SUBCUT SCH (15:44)
[2019-01-18] MEDS ORDERED: ALPRAZolam 0.5 MG TABLET PO PRN (17:55)
[2019-01-18] MEDS: rOPINIRole 1 MG TABLET PO SCH (21:35)
[2019-01-18] MEDS: SERTRALINE 25 MG TABLET PO SCH (21:35)
[2019-01-18] MEDS: BENZONATATE 100 MG CAPSULE PO SCH (21:36)
[2019-01-19] MEDS: DEXTROSE 5% NACL 0.45% 1,000 ML IV SCH ×2 (00:20→14:26)
[2019-01-19] MEDS: methylPREDNISolone SOD SUC 40 MG/1 ML VIAL IV SCH ×3 (00:55→16:31)
[2019-01-19] MEDS: IPRATROPIUM 500 MCG/2.5 ML NEB RESP TX SCH ×4 (01:21→20:14)
[2019-01-19] MEDS: LEVALBUTEROL 0.31 MG/3 ML NEB RESP TX SCH ×4 (01:21→20:14)
[2019-01-19 03:13] LABS: ABG Base Excess 3.2 MMOL/L (-2.5-2.5); ABG HCO3 27.1 MMOL/L (20-26); ABG Oxygen Saturation 90.7 % (95-100); ABG PCO2 37.8 MM HG (35-48); ABG PH 7.462 (7.35-7.45); ABG PO2 59.2 MM HG (80-95); ABG TCO2 23.5 MMOL/L (23-27); Allen Test Positive; Pt O2 Delivery Device Other
[2019-01-19 04:10] LABS: Basophils % 0.1 % (0.0-0.8); Eosinophils % 0.1 % (0.00-10.9); Hemoglobin 12.5 GM/DL (12.0-16.0); Immature Granulocytes % 3.7 %; Lymphocytes # 0.2 10*3/uL (1.4-4.0); Lymphocytes % 0.8 % (21.3-54.2); Mean Corpuscular HGB Conc 33.8 GM/DL (32-36); Mean Corpuscular Volume 93.9 FL (87-102); Mean Platelet Volume 9.7 FL (9.6-12.0); Monocytes % 0.7 % (1.7-12.7); Neutrophils % 94.6 % (38.7-73.9); Platelet Count 228 T/CUMM (130-400); Red Blood Count 3.94 MC/CUMM (3.8-5.5); Red Cell Distribution Width 15.6 % (9.3-17.3); White Blood Count 19.1 T/CUMM (4-12)
[2019-01-19 04:39] LABS: Band Neutrophils 10 % (0-10); Lymphocytes 1 % (20-55); Metamyelocytes 6 %; Myelocytes 3 %; Segmented Neutrophils 79 % (50-85); Total Cells Counted 100
[2019-01-19 04:40] LABS: Platelet Estimate Normal; Polychromasia Few
[2019-01-19 04:45] LABS: Calcium 9.3 MG/DL (8.5-10.1); Osmolality,Calculated 256.2 MOS/KG (273-304)
[2019-01-19] MEDS: POTASSIUM CHLORIDE RIDER 10 MEQ in PREMIX 1 EACH IV PRN (06:00)
[2019-01-19] MEDS: DORNASE ALFA 2.5 MG/2.5 ML VIAL RESP TX SCH ×2 (07:10→20:14)
[2019-01-19] MEDS: MAGNESIUM SULF RIDER 2 GM in PREMIX 1 EACH IV PRN (08:15)
[2019-01-19] MEDS: MULTIVITAMIN (CENTRUM) TABLET PO SCH ×2 (08:46→20:50)
[2019-01-19] MEDS: FOLIC ACID 1 MG TABLET PO SCH ×2 (08:46→20:50)
[2019-01-19] MEDS: MAGNESIUM OXIDE 400 MG TABLET PO SCH (08:47)
[2019-01-19] MEDS: LANSOPRAZOLE ODT 30 MG TABLET PER TUBE SCH ×2 (08:47→20:51)
[2019-01-19] MEDS: BENZONATATE 100 MG CAPSULE PO SCH ×2 (08:47→20:51)
[2019-01-19] MEDS: ACEBUTOLOL 200 MG CAPSULE PO SCH (08:48)
[2019-01-19] MEDS: VANCOMYCIN INJ 750 MG in SODIUM CHLORIDE 0.9% 250 ML IV SCH ×2 (10:24→23:23)
[2019-01-19] MEDS: HYDROmorphone 2 MG/1 ML VIAL IV PRN ×2 (10:37→19:20)
[2019-01-19] MEDS: LEVOFLOXACIN INJ 500 MG in PREMIX 1 EACH IV SCH (14:27)
[2019-01-19] MEDS: ENOXAPARIN 40 MG/0.4 ML SYRINGE SUBCUT SCH (15:00)
[2019-01-19] MEDS: rOPINIRole 1 MG TABLET PO SCH (20:51)
[2019-01-19] MEDS: SERTRALINE 25 MG TABLET PO SCH (20:51)
[2019-01-20] MEDS: HYDROmorphone 2 MG/1 ML VIAL IV PRN ×5 (00:14→16:35)
[2019-01-20] MEDS: methylPREDNISolone SOD SUC 40 MG/1 ML VIAL IV SCH ×2 (01:26→09:52)
[2019-01-20] MEDS: LEVALBUTEROL 0.31 MG/3 ML NEB RESP TX SCH ×4 (01:40→19:21)
[2019-01-20] MEDS: IPRATROPIUM 500 MCG/2.5 ML NEB RESP TX SCH ×4 (01:40→19:20)
[2019-01-20] MEDS: DEXTROSE 5% NACL 0.45% 1,000 ML IV SCH ×2 (03:21→05:28)
[2019-01-20 03:22] LABS: ABG HCO3 27.8 MMOL/L (20-26); ABG Oxygen Saturation 92.4 % (95-100); ABG PCO2 41.7 MM HG (35-48); ABG PH 7.442 (7.35-7.45); ABG PO2 65.6 MM HG (80-95); Allen Test Positive
[2019-01-20 05:49] LABS: Basophils % 0.1 % (0.0-0.8); Hematocrit 36.7 VOL% (35.7-47.0); Hemoglobin 12.1 GM/DL (12.0-16.0); Immature Granulocytes Absolute 0.54 #; Lymphocytes # 0.2 10*3/uL (1.4-4.0); Lymphocytes % 0.8 % (21.3-54.2); Mean Corpuscular Volume 94.3 FL (87-102); Mean Platelet Volume 9.3 FL (9.6-12.0); Neutrophils % 95.1 % (38.7-73.9); Platelet Count 210 T/CUMM (130-400); Red Blood Count 3.89 MC/CUMM (3.8-5.5); Red Cell Distribution Width 15.3 % (9.3-17.3)
[2019-01-20 06:03] LABS: Calcium 9.2 MG/DL (8.5-10.1); Osmolality,Calculated 264.5 MOS/KG (273-304)
[2019-01-20] MEDS: POTASSIUM CHLORIDE RIDER 10 MEQ in PREMIX 1 EACH IV PRN ×5 (06:25→11:20)
[2019-01-20] MEDS: MAGNESIUM SULF RIDER 2 GM in PREMIX 1 EACH IV PRN (06:27)
[2019-01-20] MEDS: DORNASE ALFA 2.5 MG/2.5 ML VIAL RESP TX SCH (07:18)
[2019-01-20 10:03] LABS: Band Neutrophils 9 % (0-10); Metamyelocytes 2 %; Segmented Neutrophils 89 % (50-85); Total Cells Counted 100
[2019-01-20 10:04] LABS: Ovalocytes Few; Polychromasia Slight
[2019-01-20 10:25] LABS: Platelet Estimate Normal
[2019-01-20] MEDS: ASPIRIN CHEW 81 MG TABLET PO SCH (10:33)
[2019-01-20] MEDS: MULTIVITAMIN (CENTRUM) TABLET PO SCH (10:33)
[2019-01-20] MEDS: MAGNESIUM OXIDE 400 MG TABLET PO SCH (10:34)
[2019-01-20] MEDS: FOLIC ACID 1 MG TABLET PO SCH (10:34)
[2019-01-20] MEDS: ACEBUTOLOL 200 MG CAPSULE PO SCH (10:34)
[2019-01-20] MEDS: LANSOPRAZOLE ODT 30 MG TABLET PER TUBE SCH (10:34)
[2019-01-20] MEDS: BENZONATATE 100 MG CAPSULE PO SCH (10:35)
[2019-01-20] MEDS: VANCOMYCIN INJ 750 MG in SODIUM CHLORIDE 0.9% 250 ML IV SCH (11:19)
[2019-01-20 23:00] VITALS: BP 113/59
== END 2019-01-20 22:03 | disposition expired | DRG 163 ==
LOC: EDUNIT# → EDBD → N.ED 11:04 → N.EDINP 14:22 → SUATTDRO 14:22 → N.5E 17:05 → N.CC 12-25 17:32 → N.5E 01-12 18:21 → N.CC 01-17 08:58 → N.TELES 01-20 15:04
PROVIDERS: ADMIT Internal Medicine; ATTEND Hospitalist